=== PATIENT | male | born 1965 | race African-American/Black ===

== ENCOUNTER 2022-02-16 12:25 | Emergency (ER) | payer MEDICAID ==
[~2022-02-16] VITALS: Ht 152.4 cm; Wt 54.5 kg
[~2022-02-16 12:25] MED LIST: ATEN100T PO; OXY20CRT PO
[2022-02-16 15:10] LABS: Basophils # (auto) 0.1 10 ^3/uL (0-0.2); Basophils % (auto) 0.7 % (0.0-2.0); Eosinophils # (auto) 0 10 ^3/uL (0-0.8); Eosinophils % (auto) 0.3 % (0.0-7.0); Hematocrit 31.9 % (41.0-53.0); Hemoglobin 9.4 g/dL (13.5-17.5); Lymphocytes # (auto) 1.3 10 ^3/uL (0.4-5.4); Lymphocytes % (auto) 10.2 % (10.0-50.0); Mean Corpuscular Hemoglobin 24.9 pg (28.0-32.0); Mean Corpuscular Hgb Conc. 29.5 g/dL (32.0-36.0); Mean Corpuscular Volume 84.4 fL (80.0-100.0); Monocytes % (auto) 8.1 % (0.0-12.0); Neutrophils # (auto) 10.1 10 ^3/uL (1.6-8.6); Neutrophils % (auto) 80.7 % (37.0-80.0); Red Blood Cells 3.78 10^6/uL (4.5-5.90); White Blood Cell 12.5 10^3/uL (4.4-10.8)
[2022-02-16 15:11] LABS: Red Cell Distribution Width 20.1 % (11.8-14.3)
[2022-02-16 15:24] LABS: Calcium 8.5 mg/dL (8.5-10.1); Potassium 4.2 mmol/L (3.5-5.1)
[2022-02-16 15:28] LABS: BUN/Creatinine Ratio 40.8; Bilirubin, Total 0.3 mg/dL (0.2-1.0); Total Protein 8.1 g/dL (6.4-8.2)
[2022-02-16] MEDS ORDERED: levoFLOXacin 250 MG TAB PO ONE (16:30)
[2022-02-16] MEDS ORDERED: DOXY-286 PO (18:56)
[2022-02-16] MEDS ORDERED: ALBU108A5 IN (18:56)
[2022-02-17 09:00] VITALS: BP 135/92
== END 2022-02-17 14:35 | disposition home or self-care (01) ==
LOC: ER 12:25 → EDBD 12:25 → ER 02-17 14:31
DX: J18.9 Pneumonia, unspecified organism (principal); J45.909 Unspecified asthma, uncomplicated; I10 Essential (primary) hypertension; F17.210 Nicotine dependence, cigarettes, uncomplicated; Z86.73 Personal history of transient ischemic attack (TIA), and cerebral infarction without residual deficits; Z79.899 Other long term (current) drug therapy
CPT/HCPCS: 36415; 71045; 71250; 80053; 83605; 83880; 84484; 85025; 93005

== ENCOUNTER 2022-02-24 13:33 | Inpatient (IN) | payer MEDICAID ==
[~2022-02-24] VITALS: Ht 165.1 cm; Wt 56.9 kg
[~2022-02-24 13:33] MED LIST changes: +ALBU108A5 IN; +DOXY-286 PO
[2022-02-24] MEDS ORDERED: methylPREDNISolone SOD SUCC 125 MG/2 ML VL IV ONE (13:45)
[2022-02-24 14:18] LABS: Basophils # (auto) 0 10 ^3/uL (0-0.2); Basophils % (auto) 0.2 % (0.0-2.0); Eosinophils # (auto) 0 10 ^3/uL (0-0.8); Hemoglobin 10.1 g/dL (13.5-17.5); Neutrophils # (auto) 14.1 10 ^3/uL (1.6-8.6)
[2022-02-24 14:20] LABS: Eosinophils % (auto) 0.2 % (0.0-7.0); Hematocrit 33.9 % (41.0-53.0); Lymphocytes % (auto) 5.8 % (10.0-50.0); Mean Corpuscular Hemoglobin 25.5 pg (28.0-32.0); Mean Corpuscular Hgb Conc. 29.6 g/dL (32.0-36.0); Monocytes # (auto) 1.3 10 ^3/uL (0-1.3); Monocytes % (auto) 8.1 % (0.0-12.0); Neutrophils % (auto) 85.7 % (37.0-80.0); Red Blood Cells 3.95 10^6/uL (4.5-5.90); White Blood Cell 16.4 10^3/uL (4.4-10.8)
[2022-02-24 14:30] LABS: Red Cell Distribution Width 21.7 % (11.8-14.3)
[2022-02-24 14:31] LABS: Albumin 2.2 g/dL (3.4-5.0); Calcium 9.3 mg/dL (8.5-10.1); Magnesium 2.5 mg/dL (1.6-2.6); Potassium 3.7 mmol/L (3.5-5.1)
[2022-02-24 14:35] LABS: BUN/Creatinine Ratio 43.8; Bilirubin, Total 0.2 mg/dL (0.2-1.0); Total Protein 8.8 g/dL (6.4-8.2)
[2022-02-24 16:07] LABS: Urine Bacteria MOD /hpf (None Seen); Urine Blood Negative /uL (Negative); Urine Budding Yeast MANY /hpf (None Seen); Urine Hyaline Cast FEW /lpf (0 - 2); Urine Mucus FEW (None Seen); Urine Specific Gravity 1.034 (1.001-1.035); Urine WBC 311 /hpf (0 - 3); Urine WBC Clumps PRESENT /hpf (None Seen)
[2022-02-24] MEDS ORDERED: IPRATROPIUM BROM 0.5 MG/2.5ML INH SOL HHN ONE (16:45)
[2022-02-24] MEDS ORDERED: ALBUTEROL SULF 2.5 MG/0.5ML(0.5%) NEB SOLN HHN ONE (16:45)
[2022-02-24] MEDS ORDERED: AZITHROMYCIN 500MG/ 250ML 250 ML IV ONE (18:15)
[2022-02-24] MEDS ORDERED: cefTRIAXone 1GM/50ML D5W 50 ML IV ONE (18:15)
[2022-02-24] MEDS ORDERED: VANCOMYCIN PER PHARMACY 0 MG IV SCH (19:00)
[2022-02-24] MEDS ORDERED: DOCUSATE SOD 100 MG CAP PO PRN (19:15)
[2022-02-24] MEDS: SODIUM CHLORIDE 0.9% 1,000 ML IV SCH (20:25)
[2022-02-24] MEDS: VANCOMYCIN 1GM/250ML 250 ML IV SCH (20:27)
[2022-02-24] MEDS: PIPERACILLIN-TAZOB 3.375GM 100 ML IV SCH (22:13)
[2022-02-24] MEDS ORDERED: SODIUM CHLORIDE 0.9% 1,000 ML IV ONE (22:45)
[2022-02-25 05:30] LABS: Potassium 3.4 mmol/L (3.5-5.1)
[2022-02-25] MEDS: PIPERACILLIN-TAZOB 3.375GM 100 ML IV SCH ×3 (05:32→19:00)
[2022-02-25] MEDS: MORPHINE SULFATE INJ 2 MG/ml SYRG IV PRN (05:33)
[2022-02-25 05:37] LABS: Basophils # (auto) 0 10 ^3/uL (0-0.2); Eosinophils # (auto) 0 10 ^3/uL (0-0.8); Hematocrit 30.1 % (41.0-53.0); Lymphocytes # (auto) 0.4 10 ^3/uL (0.4-5.4); Monocytes # (auto) 0.4 10 ^3/uL (0-1.3)
[2022-02-25 05:38] LABS: Hemoglobin 8.9 g/dL (13.5-17.5); Lymphocytes % (auto) 2.7 % (10.0-50.0); Mean Corpuscular Hemoglobin 25.5 pg (28.0-32.0); Mean Corpuscular Hgb Conc. 29.5 g/dL (32.0-36.0); Mean Corpuscular Volume 86.7 fL (80.0-100.0); Monocytes % (auto) 2.8 % (0.0-12.0); Neutrophils # (auto) 14.8 10 ^3/uL (1.6-8.6); Neutrophils % (auto) 94.5 % (37.0-80.0); Red Blood Cells 3.47 10^6/uL (4.5-5.90); White Blood Cell 15.7 10^3/uL (4.4-10.8)
[2022-02-25 05:41] LABS: Albumin 2.1 g/dL (3.4-5.0); BUN/Creatinine Ratio 48.6; Bilirubin, Total 0.3 mg/dL (0.2-1.0); Calcium 8.6 mg/dL (8.5-10.1); Phosphorus 4.1 mg/dL (2.5-4.90); Total Protein 7.7 g/dL (6.4-8.2)
[2022-02-25 08:10] VITALS: BP 73/51
[2022-02-25] MEDS: ATENOLOL 25 MG TAB PO SCH (10:00)
[2022-02-25] MEDS: VANCOMYCIN 1GM/250ML 250 ML IV SCH ×2 (10:33→20:04)
[2022-02-25] MEDS: ENOXAPARIN SOD 40 MG/0.4 ML SYRINGE SC SCH (10:34)
[2022-02-25] MEDS: SODIUM CHLORIDE 0.9% 1,000 ML IV SCH (11:55)
[2022-02-25 13:00] VITALS: BP 105/73
[2022-02-25 16:55] VITALS: BP 121/84
[2022-02-25] MEDS: HYDROcodone-ACET 5/325MG TAB PO PRN (20:12)
[2022-02-25 22:00] VITALS: BP 102/63
[2022-02-26] VITALS (9 sets, daily range): BP systolic 72–119; BP diastolic 48–74
[2022-02-26] MEDS: VANCOMYCIN 1GM/250ML 250 ML IV SCH (02:00)
[2022-02-26] MEDS: MORPHINE SULFATE INJ 2 MG/ml SYRG IV PRN ×3 (03:48→19:41)
[2022-02-26] MEDS: SODIUM CHLORIDE 0.9% 1,000 ML IV SCH (05:44)
[2022-02-26] MEDS: PIPERACILLIN-TAZOB 3.375GM 100 ML IV SCH ×3 (05:44→19:37)
[2022-02-26 06:59] LABS: Basophils # (auto) 0 10 ^3/uL (0-0.2); Basophils % (auto) 0.1 % (0.0-2.0); Eosinophils # (auto) 0 10 ^3/uL (0-0.8); Lymphocytes # (auto) 0.8 10 ^3/uL (0.4-5.4); Nucleated Red Blood Cells % 0.1 %
[2022-02-26 07:04] LABS: Eosinophils % (auto) 0.2 % (0.0-7.0); Hematocrit 27.1 % (41.0-53.0); Lymphocytes % (auto) 7.1 % (10.0-50.0); Mean Corpuscular Hemoglobin 25.6 pg (28.0-32.0); Mean Corpuscular Hgb Conc. 29.5 g/dL (32.0-36.0); Mean Corpuscular Volume 86.9 fL (80.0-100.0); Monocytes % (auto) 8.6 % (0.0-12.0); Neutrophils # (auto) 9.9 10 ^3/uL (1.6-8.6); Red Blood Cells 3.12 10^6/uL (4.5-5.90); White Blood Cell 11.8 10^3/uL (4.4-10.8)
[2022-02-26 07:06] LABS: Potassium 3.2 mmol/L (3.5-5.1)
[2022-02-26 07:11] LABS: BUN/Creatinine Ratio 91.1; Calcium 8.4 mg/dL (8.5-10.1); Magnesium 2.1 mg/dL (1.6-2.6); Phosphorus 2.4 mg/dL (2.5-4.90)
[2022-02-26 07:13] LABS: Red Cell Distribution Width 21.4 % (11.8-14.3)
[2022-02-26] MEDS: ATENOLOL 25 MG TAB PO SCH (10:00)
[2022-02-26] MEDS: ENOXAPARIN SOD 40 MG/0.4 ML SYRINGE SC SCH (10:19)
[2022-02-26] MEDS: DAKINS QUARTER STR 0.125% (NaHypochlorite) 473 ML TOPICAL SOL TOP SCH (10:20)
[2022-02-26] MEDS ORDERED: guaiFENesin 200 MG/10 ML UD PO PRN (22:00)
[2022-02-26] MEDS ORDERED: guaiFENesin 200 MG/10 ML UD GT PRN (22:00)
[2022-02-26] MEDS: ALBUTEROL SULF 2.5 MG/0.5ML(0.5%) NEB SOLN NEB SCH (22:10)
[2022-02-26] MEDS: IPRATROPIUM BROM 0.5 MG/2.5ML INH SOL NEB SCH (22:10)
[2022-02-27] VITALS (44 sets, daily range): BP systolic 73–127; BP diastolic 44–81
[2022-02-27] MEDS: ALBUTEROL SULF 2.5 MG/0.5ML(0.5%) NEB SOLN NEB SCH ×6 (02:15→23:31)
[2022-02-27] MEDS: IPRATROPIUM BROM 0.5 MG/2.5ML INH SOL NEB SCH ×6 (02:15→23:31)
[2022-02-27] MEDS: D5W/SOD CHL 0.45% 1,000 ML IV SCH ×3 (03:19→21:10)
[2022-02-27] MEDS: PIPERACILLIN-TAZOB 3.375GM 100 ML IV SCH ×3 (03:20→19:47)
[2022-02-27] MEDS: ALPRAZolam 0.5 MG TAB PO PRN (06:53)
[2022-02-27] MEDS: MORPHINE SULFATE INJ 2 MG/ml SYRG IV PRN ×3 (08:12→23:41)
[2022-02-27] MEDS: ONDANSETRON HCL 4 MG/2 ML VIAL IV PRN ×2 (08:12→15:00)
[2022-02-27] MEDS: ATENOLOL 25 MG TAB PO SCH (10:00)
[2022-02-27] MEDS: ENOXAPARIN SOD 40 MG/0.4 ML SYRINGE SC SCH (10:12)
[2022-02-27] MEDS: DAKINS QUARTER STR 0.125% (NaHypochlorite) 473 ML TOPICAL SOL TOP SCH (10:38)
[2022-02-27 12:07] LABS: BUN/Creatinine Ratio 88.9; Calcium 8.2 mg/dL (8.5-10.1); Potassium 3.3 mmol/L (3.5-5.1)
[2022-02-27] MEDS: ACETYLCYSTEINE 20%(200MG/ML) SOL 4ML NEB SCH ×2 (18:57→23:31)
[2022-02-27] MEDS: HYDROcodone-ACET 5/325MG TAB PO PRN (20:20)
[2022-02-28] VITALS (99 sets, daily range): BP systolic 63–163; BP diastolic 42–91
[2022-02-28] MEDS: ALPRAZolam 0.5 MG TAB PO PRN ×2 (00:37→23:33)
[2022-02-28] MEDS: NOREPINEPHRINE 8 MG/250ML KIT 250 ML IV SCH ×2 (02:22→19:15)
[2022-02-28] MEDS: PIPERACILLIN-TAZOB 3.375GM 100 ML IV SCH ×3 (03:48→20:00)
[2022-02-28] MEDS: IPRATROPIUM BROM 0.5 MG/2.5ML INH SOL NEB SCH ×3 (07:14→18:18)
[2022-02-28] MEDS: ALBUTEROL SULF 2.5 MG/0.5ML(0.5%) NEB SOLN NEB SCH ×3 (07:14→18:18)
[2022-02-28] MEDS: ACETYLCYSTEINE 20%(200MG/ML) SOL 4ML NEB SCH ×3 (07:14→18:18)
[2022-02-28] MEDS: ATENOLOL 25 MG TAB PO SCH (10:00)
[2022-02-28] MEDS: D5W/SOD CHL 0.45% 1,000 ML IV SCH ×2 (10:30→23:50)
[2022-02-28] MEDS ORDERED: CLINIMIX PER PHARMACY 0 ML IV SCH (10:45)
[2022-02-28] MEDS: ENOXAPARIN SOD 40 MG/0.4 ML SYRINGE SC SCH (11:01)
[2022-02-28] MEDS: HYDROcodone-ACET 5/325MG TAB PO PRN ×2 (11:33→22:25)
[2022-02-28 11:36] LABS: Albumin 1.7 g/dL (3.4-5.0); Calcium 8.6 mg/dL (8.5-10.1); Magnesium 2.3 mg/dL (1.6-2.6)
[2022-02-28 11:39] LABS: BUN/Creatinine Ratio 50.9; Bilirubin, Total 0.3 mg/dL (0.2-1.0)
[2022-02-28] MEDS ORDERED: DEXTROSE (50%) 50ML SYRG IV SCH (12:00)
[2022-02-28] MEDS: InsuLIN REG 1unit/0.01ml Soln (100units/ml) SC SCH ×2 (12:00→18:00)
[2022-02-28 12:08] LABS: Potassium 2.9 mmol/L (3.5-5.1)
[2022-02-28] MEDS ORDERED: POTASSIUM CHLORIDE 60 MEQ, LIDOCAINE 1% (LOCAL ANESTH.) 6 ML in SODIUM CHL 0.9% 500 ML IV ONE (12:15)
[2022-02-28 14:19] LABS: Hematocrit 28.4 % (41.0-53.0); Hemoglobin 8.5 g/dL (13.5-17.5); Mean Corpuscular Hemoglobin 25.9 pg (28.0-32.0); Mean Corpuscular Volume 86.4 fL (80.0-100.0); Red Blood Cells 3.28 10^6/uL (4.5-5.90)
[2022-02-28 14:22] LABS: Red Cell Distribution Width 21.9 % (11.8-14.3)
[2022-02-28 14:23] LABS: White Blood Cell 33.8 10^3/uL (4.4-10.8)
[2022-02-28 14:25] LABS: Band Neutrophils % (manual) 0; Basophils % (manual) 0 (0.0-2.0); Blast Cells 0; Eosinophils % (manual) 0 (0-7); Metamyelocytes % 0; Myelocytes % 0; Promyelocytes % 0; Reactive Lymphocytes 0
[2022-02-28 14:42] LABS: Lymphocytes % (manual) 5 (10.0-50.0)
[2022-02-28 14:43] LABS: Monocytes % (manual) 1 (0-12)
[2022-02-28] MEDS: ACCU-CHEK COMFORT CURVE STRIP VI SCH ×2 (15:05→20:00)
[2022-02-28] MEDS: DAKINS QUARTER STR 0.125% (NaHypochlorite) 473 ML TOPICAL SOL TOP SCH (15:06)
[2022-02-28] MEDS: IPRATROPIUM BROM 0.5 MG/2.5ML INH SOL NEB PRN (15:56)
[2022-02-28] MEDS: ALBUTEROL SULF 2.5 MG/0.5ML(0.5%) NEB SOLN NEB PRN (15:56)
[2022-02-28] MEDS: CLINIMIX PER PHARMACY IV NR (23:44)
[2022-03-01] VITALS (94 sets, daily range): BP systolic 67–157; BP diastolic 26–101
[2022-03-01] MEDS: ACCU-CHEK COMFORT CURVE STRIP VI SCH ×5 (00:26→23:43)
[2022-03-01] MEDS: ALBUTEROL SULF 2.5 MG/0.5ML(0.5%) NEB SOLN NEB SCH ×4 (00:55→18:28)
[2022-03-01] MEDS: ACETYLCYSTEINE 20%(200MG/ML) SOL 4ML NEB SCH ×4 (00:55→18:28)
[2022-03-01] MEDS: IPRATROPIUM BROM 0.5 MG/2.5ML INH SOL NEB SCH ×4 (00:55→18:28)
[2022-03-01] MEDS: MORPHINE SULFATE INJ 2 MG/ml SYRG IV PRN ×4 (01:41→18:20)
[2022-03-01] MEDS: NOREPINEPHRINE 8 MG/250ML KIT 250 ML IV SCH (01:57)
[2022-03-01 04:59] LABS: Hematocrit 29.1 % (41.0-53.0); Hemoglobin 8.6 g/dL (13.5-17.5); Mean Corpuscular Hemoglobin 25.9 pg (28.0-32.0); Mean Corpuscular Hgb Conc. 29.5 g/dL (32.0-36.0); Mean Corpuscular Volume 87.7 fL (80.0-100.0); Red Blood Cells 3.32 10^6/uL (4.5-5.90); White Blood Cell 28.3 10^3/uL (4.4-10.8)
[2022-03-01 05:01] LABS: Red Cell Distribution Width 22.1 % (11.8-14.3)
[2022-03-01 05:02] LABS: Band Neutrophils % (manual) 0; Basophils % (manual) 0 (0.0-2.0); Blast Cells 0; Eosinophils % (manual) 0 (0-7); Metamyelocytes % 0; Myelocytes % 0; Promyelocytes % 0; Reactive Lymphocytes 0
[2022-03-01] MEDS: PIPERACILLIN-TAZOB 3.375GM 100 ML IV SCH ×3 (05:04→18:11)
[2022-03-01 05:05] LABS: Albumin 1.6 g/dL (3.4-5.0); Calcium 8.4 mg/dL (8.5-10.1); Magnesium 2.2 mg/dL (1.6-2.6); Potassium 3.5 mmol/L (3.5-5.1)
[2022-03-01 05:09] LABS: BUN/Creatinine Ratio 53.7; Bilirubin, Total 0.3 mg/dL (0.2-1.0); Total Protein 6.6 g/dL (6.4-8.2)
[2022-03-01] MEDS: InsuLIN REG 1unit/0.01ml Soln (100units/ml) SC SCH ×5 (06:00→23:45)
[2022-03-01 06:33] LABS: Lymphocytes % (manual) 6 (10.0-50.0); Monocytes % (manual) 2 (0-12)
[2022-03-01] MEDS: ATENOLOL 25 MG TAB PO SCH (09:23)
[2022-03-01] MEDS: DAKINS QUARTER STR 0.125% (NaHypochlorite) 473 ML TOPICAL SOL TOP SCH (09:26)
[2022-03-01] MEDS: ENOXAPARIN SOD 40 MG/0.4 ML SYRINGE SC SCH (09:26)
[2022-03-01 10:41] LABS: INR 1.15 (0.9-1.15); Partial Thromboplastin Time 42.6 sec (24.6-33.4)
[2022-03-01] MEDS: D5W/SOD CHL 0.45% 1,000 ML IV SCH (13:10)
[2022-03-01] MEDS: ALPRAZolam 0.5 MG TAB PO PRN (19:27)
[2022-03-01] MEDS: CLINIMIX PER PHARMACY IV NR ×2 (19:49→21:13)
[2022-03-01] MEDS ORDERED: VANCOMYCIN PER PHARMACY 1,000 MG IV SCH (21:00)
[2022-03-01] MEDS: VANCOMYCIN 750mg/250ml 250 ML IV SCH (22:07)
[2022-03-01] MEDS ORDERED: LIDOCAINE 1% (LOCAL ANESTH.) PF 5ml SDV ID ONE (23:30)
[2022-03-02] VITALS (94 sets, daily range): BP systolic 79–165; BP diastolic 32–103
[2022-03-02] MEDS: ACETYLCYSTEINE 20%(200MG/ML) SOL 4ML NEB SCH ×4 (00:08→19:01)
[2022-03-02] MEDS: IPRATROPIUM BROM 0.5 MG/2.5ML INH SOL NEB SCH ×4 (00:08→19:00)
[2022-03-02] MEDS: ALBUTEROL SULF 2.5 MG/0.5ML(0.5%) NEB SOLN NEB SCH ×4 (00:08→19:00)
[2022-03-02] MEDS: D5W/SOD CHL 0.45% 1,000 ML IV SCH ×2 (02:30→16:09)
[2022-03-02] MEDS: MORPHINE SULFATE INJ 2 MG/ml SYRG IV PRN ×4 (04:06→22:22)
[2022-03-02] MEDS: PIPERACILLIN-TAZOB 3.375GM 100 ML IV SCH ×3 (04:07→19:45)
[2022-03-02 04:43] LABS: Basophils # (auto) 0 10 ^3/uL (0-0.2); Basophils % (auto) 0.1 % (0.0-2.0); Eosinophils # (auto) 0.1 10 ^3/uL (0-0.8); Eosinophils % (auto) 0.3 % (0.0-7.0)
[2022-03-02 04:45] LABS: Hematocrit 25.3 % (41.0-53.0); Hemoglobin 7.4 g/dL (13.5-17.5); Lymphocytes # (auto) 0.9 10 ^3/uL (0.4-5.4); Lymphocytes % (auto) 4.8 % (10.0-50.0); Mean Corpuscular Hgb Conc. 29.2 g/dL (32.0-36.0); Mean Corpuscular Volume 89.1 fL (80.0-100.0); Monocytes # (auto) 0.8 10 ^3/uL (0-1.3); Monocytes % (auto) 4.4 % (0.0-12.0); Neutrophils # (auto) 17.1 10 ^3/uL (1.6-8.6); Neutrophils % (auto) 90.4 % (37.0-80.0); Red Blood Cells 2.84 10^6/uL (4.5-5.90); White Blood Cell 18.9 10^3/uL (4.4-10.8)
[2022-03-02 04:47] LABS: Red Cell Distribution Width 21.5 % (11.8-14.3)
[2022-03-02 05:10] LABS: Albumin 1.6 g/dL (3.4-5.0); BUN/Creatinine Ratio 63.3; Bilirubin, Total 0.7 mg/dL (0.2-1.0); Calcium 7.9 mg/dL (8.5-10.1); Magnesium 1.8 mg/dL (1.6-2.6); Phosphorus 2.1 mg/dL (2.5-4.90); Total Protein 5.5 g/dL (6.4-8.2)
[2022-03-02 05:31] LABS: Potassium 2.9 mmol/L (3.5-5.1)
[2022-03-02] MEDS: ACCU-CHEK COMFORT CURVE STRIP VI SCH ×3 (05:45→18:44)
[2022-03-02] MEDS: InsuLIN REG 1unit/0.01ml Soln (100units/ml) SC SCH ×3 (05:45→18:00)
[2022-03-02] MEDS: POTASSIUM CHL 20MEQ/100ML 100 ML IV SCH ×2 (06:07→09:34)
[2022-03-02] MEDS: ATENOLOL 25 MG TAB PO SCH (07:45)
[2022-03-02] MEDS ORDERED: POTASSIUM PHOSPHATE 26.4 MEQ in SODIUM CHL 0.9% 100 ML IV ONE (09:15)
[2022-03-02] MEDS: ENOXAPARIN SOD 40 MG/0.4 ML SYRINGE SC SCH (09:34)
[2022-03-02] MEDS: DAKINS QUARTER STR 0.125% (NaHypochlorite) 473 ML TOPICAL SOL TOP SCH (09:34)
[2022-03-02] MEDS: VANCOMYCIN 750mg/250ml 250 ML IV SCH ×2 (09:34→22:23)
[2022-03-02] MEDS: SODIUM CHLOR 0.9% PF (SALINE LOCK) 10ML VIAL/SYR IV SCH ×2 (09:34→22:23)
[2022-03-02 13:11] LABS: Alkaline Phosphatase 98 U/L (45-117); Anion Gap 6 (5-15); BUN/Creatinine Ratio 43.6; Blood Urea Nitrogen 17 mg/dL (7-18); Carbon Dioxide 25 mmol/L (21-32); Chloride 110 mmol/L (98-107); GFR African American 295 mL/min; GFR Non-African American 244 mL/min; Glucose 304 mg/dL (74-106); Potassium 3.7 mmol/L (3.5-5.1); Sodium 141 mmol/L (136-145)
[2022-03-02 13:12] LABS: Alanine Aminotransferase 7 U/L (16-61); Albumin 1.4 g/dL (3.4-5.0); Aspartate Aminotransferase 10 U/L (15-37); Bilirubin, Total 0.3 mg/dL (0.2-1.0); Calcium 7.6 mg/dL (8.5-10.1); Magnesium 1.6 mg/dL (1.6-2.6); Phosphorus 1.8 mg/dL (2.5-4.90); Total Protein 5.2 g/dL (6.4-8.2); Triglycerides 69 mg/dL (< 150)
[2022-03-02] MEDS: ALPRAZolam 0.5 MG TAB PO PRN (15:17)
[2022-03-02] MEDS: IPRATROPIUM BROM 0.5 MG/2.5ML INH SOL NEB PRN (15:30)
[2022-03-02] MEDS: ALBUTEROL SULF 2.5 MG/0.5ML(0.5%) NEB SOLN NEB PRN (15:31)
[2022-03-02] MEDS ORDERED: FUROSEMIDE 20 MG/2 ML VIAL IV ONE (19:00)
[2022-03-02] MEDS ORDERED: GLYCOPYRROLATE 0.2 MG/ML 1ML VIAL IV ONE (19:00)
[2022-03-02] MEDS: CLINIMIX PER PHARMACY IV NR (19:49)
[2022-03-02] MEDS ORDERED: SUCCINYLCHOLINE CHLORIDE 20 MG/ML 10ML VIAL IV ONE (20:25)
[2022-03-02] MEDS ORDERED: ETOMIDATE (2MG/ML) 20ML VIAL IV ONE (20:25)
[2022-03-02] MEDS ORDERED: MIDAZOLAM DRIP 50 mg/50mL 50 ML IV ONE (21:35)
[2022-03-02] MEDS: AMINO ACID INFUSION IN D10W 1,000 ML IV NR (22:23)
[2022-03-03] VITALS (109 sets, daily range): BP systolic 60–157; BP diastolic 34–123
[2022-03-03] MEDS: ALBUTEROL SULF 2.5 MG/0.5ML(0.5%) NEB SOLN NEB SCH ×3 (00:07→18:04)
[2022-03-03] MEDS: IPRATROPIUM BROM 0.5 MG/2.5ML INH SOL NEB SCH ×3 (00:07→18:04)
[2022-03-03] MEDS: ACETYLCYSTEINE 20%(200MG/ML) SOL 4ML NEB SCH ×3 (00:08→18:04)
[2022-03-03] MEDS: ACCU-CHEK COMFORT CURVE STRIP VI SCH ×4 (00:29→17:38)
[2022-03-03] MEDS: MIDAZOLAM DRIP 50 mg/50mL 50 ML IV SCH ×5 (00:29→23:00)
[2022-03-03] MEDS: InsuLIN REG 1unit/0.01ml Soln (100units/ml) SC SCH ×4 (00:30→17:38)
[2022-03-03 02:15] LABS: Mean Corpuscular Volume 87.8 fL (80.0-100.0)
[2022-03-03 02:17] LABS: Hemoglobin 7.4 g/dL (13.5-17.5); Mean Corpuscular Hemoglobin 25.9 pg (28.0-32.0); Mean Corpuscular Hgb Conc. 29.5 g/dL (32.0-36.0); Red Blood Cells 2.85 10^6/uL (4.5-5.90); White Blood Cell 25.2 10^3/uL (4.4-10.8)
[2022-03-03 02:37] LABS: Albumin 1.5 g/dL (3.4-5.0); Calcium 7.6 mg/dL (8.5-10.1); Potassium 3.8 mmol/L (3.5-5.1)
[2022-03-03 02:38] LABS: Bilirubin, Total 0.3 mg/dL (0.2-1.0); Total Protein 5.5 g/dL (6.4-8.2)
[2022-03-03 02:40] LABS: Red Cell Distribution Width 20.8 % (11.8-14.3)
[2022-03-03 02:41] LABS: Basophils % (manual) 0 (0.0-2.0); Blast Cells 0; Eosinophils % (manual) 0 (0-7); Metamyelocytes % 0; Promyelocytes % 0; Reactive Lymphocytes 0
[2022-03-03] MEDS: PIPERACILLIN-TAZOB 3.375GM 100 ML IV SCH ×3 (03:00→19:44)
[2022-03-03 03:52] LABS: Band Neutrophils % (manual) 5; Lymphocytes % (manual) 2 (10.0-50.0); Monocytes % (manual) 6 (0-12); Myelocytes % 1
[2022-03-03] MEDS ORDERED: SODIUM CHLORIDE 0.9% 250 ML IV ONE (06:00)
[2022-03-03] MEDS: NOREPINEPHRINE 8 MG/250ML KIT 250 ML IV SCH ×2 (06:43→17:20)
[2022-03-03] MEDS: D5W/SOD CHL 0.45% 1,000 ML IV SCH ×2 (06:43→18:30)
[2022-03-03 09:17] LABS: Basophils # (auto) 0 10 ^3/uL (0-0.2); Basophils % (auto) 0.2 % (0.0-2.0); Mean Corpuscular Hgb Conc. 29.3 g/dL (32.0-36.0); Monocytes # (auto) 0.8 10 ^3/uL (0-1.3); Neutrophils # (auto) 13.4 10 ^3/uL (1.6-8.6)
[2022-03-03 09:19] LABS: Eosinophils # (auto) 0.1 10 ^3/uL (0-0.8); Eosinophils % (auto) 0.4 % (0.0-7.0); Hematocrit 22.6 % (41.0-53.0); Lymphocytes % (auto) 6.6 % (10.0-50.0); Mean Corpuscular Hemoglobin 25.9 pg (28.0-32.0); Mean Corpuscular Volume 88.5 fL (80.0-100.0); Monocytes % (auto) 5.1 % (0.0-12.0); Neutrophils % (auto) 87.7 % (37.0-80.0); Red Blood Cells 2.55 10^6/uL (4.5-5.90); Red Cell Distribution Width 21.1 % (11.8-14.3); White Blood Cell 15.3 10^3/uL (4.4-10.8)
[2022-03-03 09:22] LABS: Hemoglobin 6.6 g/dL (13.5-17.5)
[2022-03-03 09:35] LABS: INR 1.12 (0.9-1.15)
[2022-03-03 09:40] LABS: Potassium 3.5 mmol/L (3.5-5.1)
[2022-03-03 09:50] LABS: Albumin 1.4 g/dL (3.4-5.0); BUN/Creatinine Ratio 39.4; Bilirubin, Total 0.2 mg/dL (0.2-1.0); Calcium 7.7 mg/dL (8.5-10.1); Total Protein 5.2 g/dL (6.4-8.2)
[2022-03-03] MEDS: DAKINS QUARTER STR 0.125% (NaHypochlorite) 473 ML TOPICAL SOL TOP SCH (10:00)
[2022-03-03] MEDS: ENOXAPARIN SOD 40 MG/0.4 ML SYRINGE SC SCH (10:00)
[2022-03-03] MEDS: VANCOMYCIN 750mg/250ml 250 ML IV SCH (10:00)
[2022-03-03] MEDS: ATENOLOL 25 MG TAB PO SCH (10:00)
[2022-03-03] MEDS: SODIUM CHLOR 0.9% PF (SALINE LOCK) 10ML VIAL/SYR IV SCH ×2 (10:10→22:01)
[2022-03-03] MEDS ORDERED: FUROSEMIDE 40 MG/4 ML VIAL IV ONE ×2 (10:15→11:05)
[2022-03-03 10:46] LABS: Magnesium 1.5 mg/dL (1.6-2.6); Phosphorus 3.2 mg/dL (2.5-4.90)
[2022-03-03] MEDS: MAGNESIUM SULFATE 1GM/100ML 100 ML IV SCH ×2 (12:26→15:08)
[2022-03-03 17:29] LABS: Basophils # (auto) 0 10 ^3/uL (0-0.2); Eosinophils # (auto) 0.1 10 ^3/uL (0-0.8)
[2022-03-03 17:36] LABS: Basophils % (auto) 0.1 % (0.0-2.0); Mean Corpuscular Hgb Conc. 30.6 g/dL (32.0-36.0); Monocytes # (auto) 0.9 10 ^3/uL (0-1.3); Monocytes % (auto) 5.5 % (0.0-12.0)
[2022-03-03 17:38] LABS: Eosinophils % (auto) 0.5 % (0.0-7.0); Hematocrit 27.1 % (41.0-53.0); Hemoglobin 8.3 g/dL (13.5-17.5); Lymphocytes # (auto) 0.7 10 ^3/uL (0.4-5.4); Lymphocytes % (auto) 4.3 % (10.0-50.0); Mean Corpuscular Hemoglobin 26.6 pg (28.0-32.0); Mean Corpuscular Volume 86.9 fL (80.0-100.0); Neutrophils # (auto) 14.7 10 ^3/uL (1.6-8.6); Neutrophils % (auto) 89.6 % (37.0-80.0); Red Blood Cells 3.11 10^6/uL (4.5-5.90); Red Cell Distribution Width 19.3 % (11.8-14.3); White Blood Cell 16.3 10^3/uL (4.4-10.8)
[2022-03-03] MEDS: AMINO ACID INFUSION IN D10W 1,000 ML IV NR (19:55)
[2022-03-03] MEDS ORDERED: VANCOMYCIN 1GM/250ML 250 ML IV ONE (22:00)
[2022-03-03] MEDS ORDERED: IOHEXOL 350 MG/ML 100ML IJ ONE (22:53)
[2022-03-04] VITALS (97 sets, daily range): BP systolic 81–232; BP diastolic 56–176
[2022-03-04] MEDS: MORPHINE SULFATE INJ 2 MG/ml SYRG IV PRN (00:05)
[2022-03-04] MEDS: ACETYLCYSTEINE 20%(200MG/ML) SOL 4ML NEB SCH ×4 (00:07→18:08)
[2022-03-04] MEDS: IPRATROPIUM BROM 0.5 MG/2.5ML INH SOL NEB SCH ×4 (00:07→18:08)
[2022-03-04] MEDS: ALBUTEROL SULF 2.5 MG/0.5ML(0.5%) NEB SOLN NEB SCH ×4 (00:07→18:08)
[2022-03-04] MEDS: ACCU-CHEK COMFORT CURVE STRIP VI SCH ×4 (01:16→18:14)
[2022-03-04] MEDS: InsuLIN REG 1unit/0.01ml Soln (100units/ml) SC SCH ×4 (01:17→18:00)
[2022-03-04] MEDS: PIPERACILLIN-TAZOB 3.375GM 100 ML IV SCH ×3 (03:14→18:39)
[2022-03-04] MEDS: MIDAZOLAM DRIP 50 mg/50mL 50 ML IV SCH ×6 (03:15→21:24)
[2022-03-04 04:41] LABS: Chloride 104 mmol/L (98-107); Potassium 3.3 mmol/L (3.5-5.1); Sodium 133 mmol/L (136-145)
[2022-03-04 04:47] LABS: Alanine Aminotransferase < 6 U/L (16-61); Albumin 1.4 g/dL (3.4-5.0); Alkaline Phosphatase 100 U/L (45-117); Anion Gap 9 (5-15); Aspartate Aminotransferase 13 U/L (15-37); BUN/Creatinine Ratio 27.5; Bilirubin, Total 0.6 mg/dL (0.2-1.0); Blood Urea Nitrogen 30 mg/dL (7-18); Calcium 7.3 mg/dL (8.5-10.1); Carbon Dioxide 20 mmol/L (21-32); GFR African American 90 mL/min; GFR Non-African American 74 mL/min; Glucose 184 mg/dL (74-106); Phosphorus 2.6 mg/dL (2.5-4.90); Total Protein 5.4 g/dL (6.4-8.2)
[2022-03-04 04:59] LABS: Urine Bacteria FEW /hpf (None Seen); Urine Blood 1+ /uL (Negative); Urine Budding Yeast MANY /hpf (None Seen); Urine Mucus FEW (None Seen); Urine Specific Gravity 1.016 (1.001-1.035); Urine WBC 27 /hpf (0 - 3); Urine WBC Clumps PRESENT /hpf (None Seen)
[2022-03-04] MEDS: NOREPINEPHRINE 8 MG/250ML KIT 250 ML IV SCH (05:39)
[2022-03-04 05:49] LABS: Basophils # (auto) 0 10 ^3/uL (0-0.2); Basophils % (auto) 0.1 % (0.0-2.0); Eosinophils # (auto) 0.1 10 ^3/uL (0-0.8); Hematocrit 25.9 % (41.0-53.0); Lymphocytes # (auto) 1.1 10 ^3/uL (0.4-5.4); Monocytes # (auto) 0.8 10 ^3/uL (0-1.3)
[2022-03-04 05:51] LABS: Eosinophils % (auto) 0.5 % (0.0-7.0); Hemoglobin 7.9 g/dL (13.5-17.5); Lymphocytes % (auto) 8.5 % (10.0-50.0); Mean Corpuscular Hemoglobin 26.6 pg (28.0-32.0); Mean Corpuscular Hgb Conc. 30.6 g/dL (32.0-36.0); Neutrophils # (auto) 11.4 10 ^3/uL (1.6-8.6); Neutrophils % (auto) 84.9 % (37.0-80.0); Red Blood Cells 2.97 10^6/uL (4.5-5.90); Red Cell Distribution Width 19.5 % (11.8-14.3); White Blood Cell 13.4 10^3/uL (4.4-10.8)
[2022-03-04] MEDS: D5W/SOD CHL 0.45% 1,000 ML IV SCH ×2 (06:49→20:15)
[2022-03-04] MEDS: POTASSIUM CHL 20MEQ/100ML 100 ML IV SCH ×2 (07:37→09:40)
[2022-03-04] MEDS: DAKINS QUARTER STR 0.125% (NaHypochlorite) 473 ML TOPICAL SOL TOP SCH (10:00)
[2022-03-04] MEDS: ATENOLOL 25 MG TAB PO SCH (10:00)
[2022-03-04] MEDS: ENOXAPARIN SOD 40 MG/0.4 ML SYRINGE SC SCH (10:12)
[2022-03-04] MEDS: SODIUM CHLOR 0.9% PF (SALINE LOCK) 10ML VIAL/SYR IV SCH ×2 (10:13→20:15)
[2022-03-04] MEDS ORDERED: LIDOCAINE 2%HCL (LOCAL ANESTH.) INJ 20ML MDV ONE (12:40)
[2022-03-04] MEDS ORDERED: NALOXONE HCL 0.4 MG/ML VIAL ONE (12:40)
[2022-03-04] MEDS ORDERED: FLUMAZENIL 0.1 MG/ML INJ 10ML MDV IV ONE (12:40)
[2022-03-04] MEDS ORDERED: EPINEPHrine HCL 1 MG/1 ML AMP ONE (12:41)
[2022-03-04] MEDS ORDERED: fentaNYL CITRATE 100 MCG/2 ML VL ONE (12:41)
[2022-03-04] MEDS ORDERED: MIDAZOLAM HCL 5 MG/ML-1ML VIAL ONE (12:41)
[2022-03-04] MEDS ORDERED: GLYCOPYRROLATE 0.2 MG/ML 1ML VIAL ONE (12:41)
[2022-03-04] MEDS ORDERED: LIDOCAINE 2% JELLY 11ml (GLYDO) ONE (12:46)
[2022-03-04] MEDS ORDERED: POTASSIUM PHOSPHATE 26.4 MEQ in SODIUM CHL 0.9% 100 ML IV ONE (14:00)
[2022-03-04] MEDS ORDERED: hydrALAZINE HCL 20 MG/ML VL IV PRN (14:30)
[2022-03-04] MEDS: AMINO ACID INFUSION IN D10W 1,000 ML IV NR (20:15)
[2022-03-04] MEDS: MUPIROCIN 2% OINT 15gm or 22gm TOP SCH (20:15)
[2022-03-04] MEDS ORDERED: VANCOMYCIN 750mg/250ml 250 ML IV SCH (22:00)
[2022-03-05] VITALS (104 sets, daily range): BP systolic 75–143; BP diastolic 51–98
[2022-03-05] MEDS: InsuLIN REG 1unit/0.01ml Soln (100units/ml) SC SCH ×4 (00:13→17:40)
[2022-03-05] MEDS: ACCU-CHEK COMFORT CURVE STRIP VI SCH ×4 (00:13→17:29)
[2022-03-05] MEDS: IPRATROPIUM BROM 0.5 MG/2.5ML INH SOL NEB SCH ×4 (00:15→18:27)
[2022-03-05] MEDS: ALBUTEROL SULF 2.5 MG/0.5ML(0.5%) NEB SOLN NEB SCH ×4 (00:15→18:27)
[2022-03-05] MEDS: ACETYLCYSTEINE 20%(200MG/ML) SOL 4ML NEB SCH ×4 (00:15→18:29)
[2022-03-05] MEDS: MIDAZOLAM DRIP 50 mg/50mL 50 ML IV SCH ×3 (01:21→09:06)
[2022-03-05] MEDS: PIPERACILLIN-TAZOB 3.375GM 100 ML IV SCH ×2 (02:35→12:30)
[2022-03-05] MEDS ORDERED: fentaNYL Drip 2500mCg/250mlNS 250 ML IV ONE (03:13)
[2022-03-05] MEDS: fentaNYL Drip 2500mCg/250mlNS 250 ML IV SCH (03:14)
[2022-03-05 04:06] LABS: Basophils # (auto) 0 10 ^3/uL (0-0.2); Eosinophils # (auto) 0.2 10 ^3/uL (0-0.8); Eosinophils % (auto) 1.4 % (0.0-7.0); Hemoglobin 7.6 g/dL (13.5-17.5); Lymphocytes # (auto) 0.6 10 ^3/uL (0.4-5.4); Monocytes # (auto) 0.7 10 ^3/uL (0-1.3); Neutrophils # (auto) 10.8 10 ^3/uL (1.6-8.6)
[2022-03-05 04:12] LABS: Basophils % (auto) 0.1 % (0.0-2.0); Hematocrit 24.6 % (41.0-53.0); Lymphocytes % (auto) 4.8 % (10.0-50.0); Mean Corpuscular Hemoglobin 26.7 pg (28.0-32.0); Mean Corpuscular Hgb Conc. 30.9 g/dL (32.0-36.0); Mean Corpuscular Volume 86.2 fL (80.0-100.0); Monocytes % (auto) 5.4 % (0.0-12.0); Neutrophils % (auto) 88.3 % (37.0-80.0); Red Blood Cells 2.85 10^6/uL (4.5-5.90); Red Cell Distribution Width 19.4 % (11.8-14.3); White Blood Cell 12.2 10^3/uL (4.4-10.8)
[2022-03-05 04:26] LABS: Potassium 4.1 mmol/L (3.5-5.1)
[2022-03-05 04:32] LABS: Albumin 1.3 g/dL (3.4-5.0); BUN/Creatinine Ratio 27.1; Bilirubin, Total 0.3 mg/dL (0.2-1.0); Calcium 7.3 mg/dL (8.5-10.1); Magnesium 1.9 mg/dL (1.6-2.6); Phosphorus 4.8 mg/dL (2.5-4.90); Total Protein 5.2 g/dL (6.4-8.2)
[2022-03-05] MEDS: MUPIROCIN 2% OINT 15gm or 22gm TOP SCH ×2 (09:06→20:43)
[2022-03-05] MEDS: ENOXAPARIN SOD 40 MG/0.4 ML SYRINGE SC SCH (09:07)
[2022-03-05] MEDS: ATENOLOL 25 MG TAB PO SCH (09:14)
[2022-03-05] MEDS: SODIUM CHLOR 0.9% PF (SALINE LOCK) 10ML VIAL/SYR IV SCH ×2 (09:14→20:42)
[2022-03-05] MEDS: D5W/SOD CHL 0.45% 1,000 ML IV SCH ×2 (09:15→23:50)
[2022-03-05] MEDS: VASOPRESSIN 50 UNITS in D5W 5% 247.5 ML IV SCH (09:30)
[2022-03-05] MEDS: DAKINS QUARTER STR 0.125% (NaHypochlorite) 473 ML TOPICAL SOL TOP SCH (15:46)
[2022-03-05] MEDS: SODIUM FERR GLUC 62.5MG/5ML 125 MG in SODIUM CHL 0.9% 100 ML IV SCH (15:46)
[2022-03-05] MEDS ORDERED: PANTOPRAZOLE 40 MG/10 ML VIAL INJ IV ONE (16:45)
[2022-03-05] MEDS: MIDODRINE HCL 10 MG TAB PO SCH (17:29)
[2022-03-05] MEDS: CeftoloZANE-TAZOB 3 GM in D5W 5% 100 ML IV SCH (18:01)
[2022-03-05] MEDS: NOREPINEPHRINE 8 MG/250ML KIT 250 ML IV SCH (19:15)
[2022-03-05] MEDS: AMINO ACID INFUSION IN D10W 1,000 ML IV NR (20:42)
[2022-03-06] VITALS (87 sets, daily range): BP systolic 77–148; BP diastolic 53–111
[2022-03-06] MEDS: ACCU-CHEK COMFORT CURVE STRIP VI SCH ×4 (00:02→18:02)
[2022-03-06] MEDS: ALBUTEROL SULF 2.5 MG/0.5ML(0.5%) NEB SOLN NEB SCH ×5 (00:23→18:11)
[2022-03-06] MEDS: IPRATROPIUM BROM 0.5 MG/2.5ML INH SOL NEB SCH ×5 (00:24→18:11)
[2022-03-06] MEDS: ACETYLCYSTEINE 20%(200MG/ML) SOL 4ML NEB SCH ×4 (00:24→18:10)
[2022-03-06] MEDS: CeftoloZANE-TAZOB 3 GM in D5W 5% 100 ML IV SCH ×3 (02:12→18:02)
[2022-03-06] MEDS: fentaNYL Drip 2500mCg/250mlNS 250 ML IV SCH (03:00)
[2022-03-06] MEDS: D5W/SOD CHL 0.45% 1,000 ML IV SCH (03:10)
[2022-03-06 04:43] LABS: Basophils # (auto) 0 10 ^3/uL (0-0.2); Eosinophils # (auto) 0.1 10 ^3/uL (0-0.8); Lymphocytes # (auto) 0.9 10 ^3/uL (0.4-5.4); Red Blood Cells 2.52 10^6/uL (4.5-5.90); Red Cell Distribution Width 19.5 % (11.8-14.3); White Blood Cell 7.6 10^3/uL (4.4-10.8)
[2022-03-06] MEDS: ALPRAZolam 0.5 MG TAB PO PRN ×2 (04:45→20:35)
[2022-03-06 04:48] LABS: Basophils % (auto) 0.3 % (0.0-2.0); Eosinophils % (auto) 1.6 % (0.0-7.0); Hematocrit 21.6 % (41.0-53.0); Lymphocytes % (auto) 11.4 % (10.0-50.0); Mean Corpuscular Hemoglobin 27.2 pg (28.0-32.0); Mean Corpuscular Hgb Conc. 31.8 g/dL (32.0-36.0); Mean Corpuscular Volume 85.8 fL (80.0-100.0); Monocytes # (auto) 0.7 10 ^3/uL (0-1.3); Monocytes % (auto) 8.8 % (0.0-12.0); Neutrophils % (auto) 77.9 % (37.0-80.0)
[2022-03-06 04:50] LABS: Hemoglobin 6.9 g/dL (13.5-17.5)
[2022-03-06 05:03] LABS: Albumin 1.1 g/dL (3.4-5.0); BUN/Creatinine Ratio 27.2; Calcium 7.7 mg/dL (8.5-10.1); Magnesium 1.6 mg/dL (1.6-2.6); Potassium 3.4 mmol/L (3.5-5.1)
[2022-03-06 05:05] LABS: Bilirubin, Total 0.2 mg/dL (0.2-1.0); Phosphorus 2.9 mg/dL (2.5-4.90); Total Protein 5.7 g/dL (6.4-8.2)
[2022-03-06] MEDS: InsuLIN REG 1unit/0.01ml Soln (100units/ml) SC SCH ×4 (05:13→18:00)
[2022-03-06] MEDS ORDERED: POTASSIUM CHL 20MEQ/100ML 100 ML IV ONE (05:30)
[2022-03-06] MEDS: MAGNESIUM SULFATE 1GM/100ML 100 ML IV SCH ×4 (06:01→14:17)
[2022-03-06] MEDS: MIDODRINE HCL 10 MG TAB PO SCH ×3 (06:03→18:03)
[2022-03-06] MEDS: VASOPRESSIN 50 UNITS in D5W 5% 247.5 ML IV SCH (09:30)
[2022-03-06] MEDS: ATENOLOL 25 MG TAB PO SCH (10:00)
[2022-03-06] MEDS ORDERED: PANTOPRAZOLE 40 MG/10 ML VIAL INJ IV SCH (10:00)
[2022-03-06] MEDS: ENOXAPARIN SOD 40 MG/0.4 ML SYRINGE SC SCH (10:00)
[2022-03-06] MEDS: MUPIROCIN 2% OINT 15gm or 22gm TOP SCH ×2 (10:14→21:13)
[2022-03-06] MEDS: SODIUM CHLOR 0.9% PF (SALINE LOCK) 10ML VIAL/SYR IV SCH ×2 (10:15→21:13)
[2022-03-06] MEDS: DAKINS QUARTER STR 0.125% (NaHypochlorite) 473 ML TOPICAL SOL TOP SCH (10:16)
[2022-03-06] MEDS ORDERED: POTASSIUM PHOSPHATE 22 MEQ in SODIUM CHL 0.9% 100 ML IV ONE (11:00)
[2022-03-06] MEDS ORDERED: FUROSEMIDE 20 MG/2 ML VIAL IV ONE (13:45)
[2022-03-06] MEDS: SODIUM FERR GLUC 62.5MG/5ML 125 MG in SODIUM CHL 0.9% 100 ML IV SCH (14:17)
[2022-03-06] MEDS ORDERED: GLYCOPYRROLATE 0.2 MG/ML 1ML VIAL IV ONE (15:00)
[2022-03-06] MEDS: MORPHINE SULFATE INJ 2 MG/ml SYRG IV PRN (15:28)
[2022-03-06] MEDS: NOREPINEPHRINE 8 MG/250ML KIT 250 ML IV SCH (17:22)
[2022-03-06] MEDS: AMINO ACID INFUSION IN D10W 1,000 ML IV NR (20:12)
[2022-03-06] MEDS: PANTOPRAZOLE 40 MG/10 ML VIAL INJ IV SCH (21:13)
[2022-03-07] VITALS (37 sets, daily range): BP systolic 95–152; BP diastolic 67–125
[2022-03-07] MEDS: ACETYLCYSTEINE 20%(200MG/ML) SOL 4ML NEB SCH ×3 (00:17→11:14)
[2022-03-07] MEDS: IPRATROPIUM BROM 0.5 MG/2.5ML INH SOL NEB SCH ×4 (00:17→18:41)
[2022-03-07] MEDS: ALBUTEROL SULF 2.5 MG/0.5ML(0.5%) NEB SOLN NEB SCH ×4 (00:17→18:41)
[2022-03-07] MEDS: ACCU-CHEK COMFORT CURVE STRIP VI SCH ×4 (00:25→16:58)
[2022-03-07] MEDS: CeftoloZANE-TAZOB 3 GM in D5W 5% 100 ML IV SCH ×3 (01:03→16:58)
[2022-03-07 03:50] LABS: Basophils # (auto) 0 10 ^3/uL (0-0.2); Basophils % (auto) 0.1 % (0.0-2.0); Eosinophils # (auto) 0.1 10 ^3/uL (0-0.8); Eosinophils % (auto) 1.3 % (0.0-7.0); Hematocrit 27.1 % (41.0-53.0); Hemoglobin 8.9 g/dL (13.5-17.5); Lymphocytes # (auto) 0.5 10 ^3/uL (0.4-5.4); Lymphocytes % (auto) 6.5 % (10.0-50.0); Mean Corpuscular Hemoglobin 28.1 pg (28.0-32.0); Mean Corpuscular Hgb Conc. 32.7 g/dL (32.0-36.0); Mean Corpuscular Volume 85.9 fL (80.0-100.0); Monocytes # (auto) 0.7 10 ^3/uL (0-1.3); Monocytes % (auto) 9.3 % (0.0-12.0); Neutrophils # (auto) 6.4 10 ^3/uL (1.6-8.6); Neutrophils % (auto) 82.8 % (37.0-80.0); Red Blood Cells 3.16 10^6/uL (4.5-5.90); Red Cell Distribution Width 18.4 % (11.8-14.3); White Blood Cell 7.7 10^3/uL (4.4-10.8)
[2022-03-07 04:29] LABS: BUN/Creatinine Ratio 27.1; Calcium 7.6 mg/dL (8.5-10.1); Potassium 4.2 mmol/L (3.5-5.1)
[2022-03-07] MEDS: MIDODRINE HCL 10 MG TAB PO SCH ×2 (05:29→16:58)
[2022-03-07] MEDS: MORPHINE SULFATE INJ 2 MG/ml SYRG IV PRN (05:31)
[2022-03-07] MEDS: InsuLIN REG 1unit/0.01ml Soln (100units/ml) SC SCH ×4 (05:47→17:03)
[2022-03-07] MEDS ORDERED: FUROSEMIDE 20 MG/2 ML VIAL IV ONE (08:30)
[2022-03-07] MEDS ORDERED: SODIUM BICARBONATE 8.4 % INJ 50ML VIAL IV ONE (08:30)
[2022-03-07] MEDS: PANTOPRAZOLE 40 MG/10 ML VIAL INJ IV SCH ×2 (09:49→20:46)
[2022-03-07] MEDS: SODIUM CHLOR 0.9% PF (SALINE LOCK) 10ML VIAL/SYR IV SCH ×2 (09:50→22:51)
[2022-03-07] MEDS: DAKINS QUARTER STR 0.125% (NaHypochlorite) 473 ML TOPICAL SOL TOP SCH (09:50)
[2022-03-07] MEDS: MUPIROCIN 2% OINT 15gm or 22gm TOP SCH ×2 (09:50→22:51)
[2022-03-07] MEDS: HYDROcodone-ACET 5/325MG TAB PO PRN ×2 (10:06→20:49)
[2022-03-07] MEDS: SODIUM FERR GLUC 62.5MG/5ML 125 MG in SODIUM CHL 0.9% 100 ML IV SCH (13:21)
[2022-03-07] MEDS: AMINO ACID INFUSION IN D10W 1,000 ML IV NR (20:46)
[2022-03-07] MEDS: ALPRAZolam 0.5 MG TAB PO PRN (23:01)
[2022-03-08] VITALS (60 sets, daily range): BP systolic 82–175; BP diastolic 56–98
[2022-03-08] MEDS: ACCU-CHEK COMFORT CURVE STRIP VI SCH ×4 (00:08→17:53)
[2022-03-08] MEDS: MORPHINE SULFATE INJ 2 MG/ml SYRG IV PRN ×3 (00:08→10:01)
[2022-03-08] MEDS: IPRATROPIUM BROM 0.5 MG/2.5ML INH SOL NEB SCH ×4 (00:23→19:15)
[2022-03-08] MEDS: ALBUTEROL SULF 2.5 MG/0.5ML(0.5%) NEB SOLN NEB SCH ×4 (00:23→19:14)
[2022-03-08] MEDS: CeftoloZANE-TAZOB 3 GM in D5W 5% 100 ML IV SCH ×3 (02:05→17:43)
[2022-03-08 04:29] LABS: Basophils # (auto) 0 10 ^3/uL (0-0.2); Basophils % (auto) 0.4 % (0.0-2.0); Eosinophils # (auto) 0.1 10 ^3/uL (0-0.8); Eosinophils % (auto) 1.1 % (0.0-7.0); Hematocrit 27.8 % (41.0-53.0); Hemoglobin 8.6 g/dL (13.5-17.5); Lymphocytes # (auto) 0.6 10 ^3/uL (0.4-5.4); Lymphocytes % (auto) 8.6 % (10.0-50.0); Mean Corpuscular Hemoglobin 26.4 pg (28.0-32.0); Mean Corpuscular Volume 85.2 fL (80.0-100.0); Monocytes # (auto) 0.6 10 ^3/uL (0-1.3); Monocytes % (auto) 8.2 % (0.0-12.0); Neutrophils # (auto) 5.8 10 ^3/uL (1.6-8.6); Neutrophils % (auto) 81.7 % (37.0-80.0); Red Blood Cells 3.26 10^6/uL (4.5-5.90); Red Cell Distribution Width 18.4 % (11.8-14.3); White Blood Cell 7.2 10^3/uL (4.4-10.8)
[2022-03-08 04:47] LABS: Albumin 1.3 g/dL (3.4-5.0); Calcium 7.9 mg/dL (8.5-10.1); Potassium 3.5 mmol/L (3.5-5.1)
[2022-03-08 04:50] LABS: BUN/Creatinine Ratio 30.9; Bilirubin, Total 0.2 mg/dL (0.2-1.0); Phosphorus 3.6 mg/dL (2.5-4.90); Total Protein 5.3 g/dL (6.4-8.2)
[2022-03-08] MEDS: MIDODRINE HCL 10 MG TAB PO SCH ×2 (05:42→18:45)
[2022-03-08] MEDS: InsuLIN REG 1unit/0.01ml Soln (100units/ml) SC SCH ×4 (05:50→17:53)
[2022-03-08 09:30] LABS: Cholesterol 110 mg/dL (< 200)
[2022-03-08 09:32] LABS: HDL Cholesterol 34 mg/dL (40-59); LDL Cholesterol 62 mg/dL (< 100); Triglycerides 105 mg/dL (< 150)
[2022-03-08] MEDS: PANTOPRAZOLE 40 MG/10 ML VIAL INJ IV SCH ×2 (10:25→21:46)
[2022-03-08] MEDS: SODIUM CHLOR 0.9% PF (SALINE LOCK) 10ML VIAL/SYR IV SCH ×2 (10:25→21:46)
[2022-03-08] MEDS: MUPIROCIN 2% OINT 15gm or 22gm TOP SCH ×2 (10:26→21:47)
[2022-03-08] MEDS: ASPirin 81 mg TAB PO SCH (10:27)
[2022-03-08] MEDS: ALPRAZolam 0.5 MG TAB PO PRN (11:05)
[2022-03-08] MEDS ORDERED: NALOXONE HCL 1MG/ML 2ML SYRINGE ONE (11:43)
[2022-03-08] MEDS ORDERED: ROCURONIUM 10MG/ML 10ML VIAL IV ONE (11:48)
[2022-03-08] MEDS ORDERED: ETOMIDATE (2MG/ML) 20ML VIAL IV ONE (11:49)
[2022-03-08] MEDS ORDERED: fentaNYL Drip 2500mCg/250mlNS 250 ML IV SCH (12:00)
[2022-03-08] MEDS ORDERED: NOREPINEPHRINE 8 MG/250ML KIT 250 ML IV ONE (12:17)
[2022-03-08] MEDS: NOREPINEPHRINE 8 MG/250ML KIT 250 ML IV SCH (12:25)
[2022-03-08] MEDS: MIDAZOLAM DRIP 50 mg/50mL 50 ML IV SCH ×2 (12:28→21:39)
[2022-03-08] MEDS: DAKINS QUARTER STR 0.125% (NaHypochlorite) 473 ML TOPICAL SOL TOP SCH (15:00)
[2022-03-08] MEDS: SODIUM FERR GLUC 62.5MG/5ML 125 MG in SODIUM CHL 0.9% 100 ML IV SCH (15:10)
[2022-03-08 15:45] LABS: INR 1.07 (0.9-1.15)
[2022-03-08] MEDS ORDERED: TPN PER PHARMACY 0 ML IV SCH (16:00)
[2022-03-08] MEDS ORDERED: TPN PER PHARMACY IV SCH (16:00)
[2022-03-08] MEDS ORDERED: POTASSIUM PHOSPHATE 22 MEQ in SODIUM CHL 0.9% 100 ML IV ONE (17:00)
[2022-03-08] MEDS: AMINO ACID INFUSION IN D10W 1,000 ML IV NR (18:55)
[2022-03-08] MEDS: ALPRAZolam 0.5 MG TAB PO SCH (21:38)
[2022-03-08] MEDS: ATORVASTATIN 20 MG TAB PO SCH (21:46)
[2022-03-09] VITALS (105 sets, daily range): BP systolic 76–164; BP diastolic 56–104
[2022-03-09] MEDS: MICAFUNGIN SODIUM 100 MG in SODIUM CHL 0.9% 100 ML IV SCH ×2 (00:07→21:44)
[2022-03-09] MEDS: ACCU-CHEK COMFORT CURVE STRIP VI SCH ×4 (00:07→18:25)
[2022-03-09] MEDS: ALBUTEROL SULF 2.5 MG/0.5ML(0.5%) NEB SOLN NEB SCH ×4 (00:33→19:24)
[2022-03-09] MEDS: IPRATROPIUM BROM 0.5 MG/2.5ML INH SOL NEB SCH ×4 (00:34→19:24)
[2022-03-09] MEDS: CeftoloZANE-TAZOB 3 GM in D5W 5% 100 ML IV SCH ×3 (01:57→18:25)
[2022-03-09] MEDS: MORPHINE SULFATE INJ 2 MG/ml SYRG IV PRN (03:42)
[2022-03-09 04:28] LABS: Basophils # (auto) 0 10 ^3/uL (0-0.2); Basophils % (auto) 0.2 % (0.0-2.0); Eosinophils # (auto) 0.1 10 ^3/uL (0-0.8); Eosinophils % (auto) 1.2 % (0.0-7.0); Hematocrit 25.7 % (41.0-53.0); Hemoglobin 8.2 g/dL (13.5-17.5); Lymphocytes # (auto) 0.9 10 ^3/uL (0.4-5.4); Lymphocytes % (auto) 12.5 % (10.0-50.0); Mean Corpuscular Hgb Conc. 31.8 g/dL (32.0-36.0); Mean Corpuscular Volume 85.1 fL (80.0-100.0); Monocytes # (auto) 0.7 10 ^3/uL (0-1.3); Monocytes % (auto) 9.9 % (0.0-12.0); Neutrophils # (auto) 5.2 10 ^3/uL (1.6-8.6); Neutrophils % (auto) 76.2 % (37.0-80.0); Red Blood Cells 3.02 10^6/uL (4.5-5.90); Red Cell Distribution Width 18.2 % (11.8-14.3); White Blood Cell 6.9 10^3/uL (4.4-10.8)
[2022-03-09 04:54] LABS: Chloride 114 mmol/L (98-107); Potassium 3.4 mmol/L (3.5-5.1); Sodium 143 mmol/L (136-145)
[2022-03-09 04:59] LABS: Alanine Aminotransferase < 6 U/L (16-61); Albumin 1.3 g/dL (3.4-5.0); Alkaline Phosphatase 103 U/L (45-117); Anion Gap 8 (5-15); Aspartate Aminotransferase 10 U/L (15-37); BUN/Creatinine Ratio 35.1; Bilirubin, Total 0.2 mg/dL (0.2-1.0); Blood Urea Nitrogen 39 mg/dL (7-18); Calcium 8.1 mg/dL (8.5-10.1); Carbon Dioxide 21 mmol/L (21-32); GFR African American 88 mL/min; GFR Non-African American 73 mL/min; Glucose 73 mg/dL (74-106); Magnesium 1.7 mg/dL (1.6-2.6); Total Protein 5.5 g/dL (6.4-8.2)
[2022-03-09] MEDS: InsuLIN REG 1unit/0.01ml Soln (100units/ml) SC SCH ×4 (05:38→18:00)
[2022-03-09] MEDS: MIDODRINE HCL 10 MG TAB PO SCH ×2 (06:27→18:25)
[2022-03-09] MEDS ORDERED: LIDOCAINE VISCOUS 2% 15ML UD ONE (09:03)
[2022-03-09] MEDS ORDERED: SODIUM CHLORIDE LOCK 0 ML ONE (09:03)
[2022-03-09] MEDS ORDERED: fentaNYL CITRATE 100 MCG/2 ML VL ONE (09:04)
[2022-03-09] MEDS ORDERED: diphenhdrAMINE HCL 50 MG/1 ML VL ONE (09:04)
[2022-03-09] MEDS ORDERED: MIDAZOLAM HCL 5 MG/ML-1ML VIAL ONE (09:04)
[2022-03-09] MEDS: DAKINS QUARTER STR 0.125% (NaHypochlorite) 473 ML TOPICAL SOL TOP SCH (10:00)
[2022-03-09] MEDS: SODIUM CHLOR 0.9% PF (SALINE LOCK) 10ML VIAL/SYR IV SCH ×2 (10:00→21:34)
[2022-03-09] MEDS: ASPirin 81 mg TAB PO SCH (10:30)
[2022-03-09] MEDS: ALPRAZolam 0.5 MG TAB PO SCH ×2 (10:30→21:55)
[2022-03-09] MEDS: PANTOPRAZOLE 40 MG/10 ML VIAL INJ IV SCH ×2 (10:30→21:34)
[2022-03-09] MEDS: MAGNESIUM SULFATE 1GM/100ML 100 ML IV SCH ×2 (10:30→11:00)
[2022-03-09] MEDS: MUPIROCIN 2% OINT 15gm or 22gm TOP SCH ×2 (10:30→21:32)
[2022-03-09] MEDS ORDERED: POTASSIUM CHL 20MEQ/100ML 100 ML IV ONE (12:00)
[2022-03-09] MEDS: NOREPINEPHRINE 8 MG/250ML KIT 250 ML IV SCH (12:15)
[2022-03-09] MEDS: AMINO ACID INFUSION IN D10W 1,000 ML IV NR (16:46)
[2022-03-09] MEDS ORDERED: TPN PER PHARMACY IV NR ×8 (20:00)
[2022-03-09] MEDS: ATORVASTATIN 20 MG TAB PO SCH (21:34)
[2022-03-09] MEDS: MIDAZOLAM DRIP 50 mg/50mL 50 ML IV SCH (21:43)
[2022-03-09 23:44] LABS: Protein, Urine 54.1 mg/dL (0.0-11.9)
[2022-03-10] VITALS (88 sets, daily range): BP systolic 100–170; BP diastolic 68–112
[2022-03-10] MEDS: ACCU-CHEK COMFORT CURVE STRIP VI SCH ×5 (00:08→23:58)
[2022-03-10] MEDS: ALBUTEROL SULF 2.5 MG/0.5ML(0.5%) NEB SOLN NEB SCH ×4 (00:42→18:54)
[2022-03-10] MEDS: IPRATROPIUM BROM 0.5 MG/2.5ML INH SOL NEB SCH ×3 (00:42→18:54)
[2022-03-10] MEDS: CeftoloZANE-TAZOB 3 GM in D5W 5% 100 ML IV SCH ×3 (01:41→18:20)
[2022-03-10] MEDS: PROPOFOL 100 ML IV SCH ×2 (02:49→16:44)
[2022-03-10 04:39] LABS: Basophils # (auto) 0 10 ^3/uL (0-0.2); Eosinophils # (auto) 0.1 10 ^3/uL (0-0.8); Mean Corpuscular Hgb Conc. 31.3 g/dL (32.0-36.0); Monocytes # (auto) 0.5 10 ^3/uL (0-1.3); Neutrophils # (auto) 4.8 10 ^3/uL (1.6-8.6); Red Blood Cells 2.97 10^6/uL (4.5-5.90)
[2022-03-10 04:41] LABS: Basophils % (auto) 0.4 % (0.0-2.0); Eosinophils % (auto) 1.7 % (0.0-7.0); Hematocrit 25.8 % (41.0-53.0); Hemoglobin 8.1 g/dL (13.5-17.5); Lymphocytes # (auto) 0.6 10 ^3/uL (0.4-5.4); Lymphocytes % (auto) 10.4 % (10.0-50.0); Mean Corpuscular Hemoglobin 27.2 pg (28.0-32.0); Mean Corpuscular Volume 86.9 fL (80.0-100.0); Monocytes % (auto) 8.3 % (0.0-12.0); Neutrophils % (auto) 79.2 % (37.0-80.0)
[2022-03-10 04:51] LABS: Alanine Aminotransferase < 6 U/L (16-61); Chloride 115 mmol/L (98-107); Potassium 3.3 mmol/L (3.5-5.1); Sodium 143 mmol/L (136-145)
[2022-03-10 04:57] LABS: Albumin 1.3 g/dL (3.4-5.0); Alkaline Phosphatase 96 U/L (45-117); Anion Gap 8 (5-15); Aspartate Aminotransferase 8 U/L (15-37); BUN/Creatinine Ratio 40.4; Bilirubin, Total 0.2 mg/dL (0.2-1.0); Blood Urea Nitrogen 40 mg/dL (7-18); Calcium 8.5 mg/dL (8.5-10.1); Carbon Dioxide 20 mmol/L (21-32); GFR African American 101 mL/min; GFR Non-African American 83 mL/min; Glucose 113 mg/dL (74-106); Magnesium 2.3 mg/dL (1.6-2.6); Phosphorus 2.6 mg/dL (2.5-4.90)
[2022-03-10] MEDS: MIDODRINE HCL 10 MG TAB PO SCH ×2 (05:38→16:38)
[2022-03-10] MEDS: InsuLIN REG 1unit/0.01ml Soln (100units/ml) SC SCH ×5 (05:44→23:59)
[2022-03-10] MEDS ORDERED: POTASSIUM CHL 20MEQ/100ML 100 ML IV ONE (06:30)
[2022-03-10 08:41] LABS: INR 1.06 (0.9-1.15); Partial Thromboplastin Time 40.8 sec (24.6-33.4)
[2022-03-10] MEDS: PANTOPRAZOLE 40 MG/10 ML VIAL INJ IV SCH ×2 (10:31→21:41)
[2022-03-10] MEDS: ALPRAZolam 0.5 MG TAB PO SCH ×2 (10:31→21:41)
[2022-03-10] MEDS: ASPirin 81 mg TAB PO SCH (10:31)
[2022-03-10] MEDS: SODIUM CHLOR 0.9% PF (SALINE LOCK) 10ML VIAL/SYR IV SCH ×2 (10:36→21:42)
[2022-03-10] MEDS: MUPIROCIN 2% OINT 15gm or 22gm TOP SCH ×2 (10:53→21:42)
[2022-03-10] MEDS: POTASSIUM CHL 20MEQ/100ML 100 ML IV SCH ×2 (12:00→16:44)
[2022-03-10] MEDS: NOREPINEPHRINE 8 MG/250ML KIT 250 ML IV SCH (12:15)
[2022-03-10] MEDS: DAKINS QUARTER STR 0.125% (NaHypochlorite) 473 ML TOPICAL SOL TOP SCH (16:25)
[2022-03-10] MEDS ORDERED: TPN PER PHARMACY IV NR ×9 (20:00)
[2022-03-10] MEDS: ATORVASTATIN 20 MG TAB PO SCH (21:41)
[2022-03-10] MEDS: MICAFUNGIN SODIUM 100 MG in SODIUM CHL 0.9% 100 ML IV SCH (21:43)
[2022-03-11] VITALS (85 sets, daily range): BP systolic 83–232; BP diastolic 54–159
[2022-03-11] MEDS: ALBUTEROL SULF 2.5 MG/0.5ML(0.5%) NEB SOLN NEB SCH ×4 (00:26→18:14)
[2022-03-11] MEDS: IPRATROPIUM BROM 0.5 MG/2.5ML INH SOL NEB SCH ×4 (00:27→18:14)
[2022-03-11] MEDS: CeftoloZANE-TAZOB 3 GM in D5W 5% 100 ML IV SCH ×3 (02:11→19:11)
[2022-03-11] MEDS: PROPOFOL 100 ML IV SCH (04:27)
[2022-03-11 04:37] LABS: Potassium 4.8 mmol/L (3.5-5.1)
[2022-03-11 04:45] LABS: Albumin 1.3 g/dL (3.4-5.0); Bilirubin, Total 0.2 mg/dL (0.2-1.0); Calcium 8.4 mg/dL (8.5-10.1); Magnesium 2.1 mg/dL (1.6-2.6); Phosphorus 2.4 mg/dL (2.5-4.90); Total Protein 5.9 g/dL (6.4-8.2)
[2022-03-11] MEDS: MIDODRINE HCL 10 MG TAB PO SCH ×2 (05:28→17:30)
[2022-03-11] MEDS: InsuLIN REG 1unit/0.01ml Soln (100units/ml) SC SCH ×3 (05:28→17:31)
[2022-03-11] MEDS: ACCU-CHEK COMFORT CURVE STRIP VI SCH ×3 (05:28→17:31)
[2022-03-11] MEDS ORDERED: ROCURONIUM 10MG/ML 10ML VIAL IV ONE (06:59)
[2022-03-11] MEDS ORDERED: SODIUM CHLORIDE LOCK 20 ML ONE (07:04)
[2022-03-11] MEDS ORDERED: ETOMIDATE (2MG/ML) 20ML VIAL IV ONE (07:04)
[2022-03-11] MEDS ORDERED: fentaNYL CITRATE 100 MCG/2 ML VL ONE ×3 (07:04→08:32)
[2022-03-11] MEDS ORDERED: HYDROmorphone HCL 2 MG/ML VL/or syr ONE (07:04)
[2022-03-11] MEDS ORDERED: MIDAZOLAM HCL 2MG/2ML 2ml VIAL (1mg/ml) ONE ×2 (07:04→08:32)
[2022-03-11] MEDS ORDERED: ceFAZolin 1GM/50ML 100 ML IV ONE (07:11)
[2022-03-11] MEDS ORDERED: BUPIVACAINE W/ EPINEPH 0.25% INJ 50ML MDV ONE (07:17)
[2022-03-11] MEDS ORDERED: SODIUM PHOSP 20MEQ(15MMOL) IN NS 100 ML IV ONE (11:00)
[2022-03-11] MEDS: ASPirin 81 mg TAB PO SCH (11:35)
[2022-03-11] MEDS: PANTOPRAZOLE 40 MG/10 ML VIAL INJ IV SCH (11:35)
[2022-03-11] MEDS: SODIUM CHLOR 0.9% PF (SALINE LOCK) 10ML VIAL/SYR IV SCH ×2 (11:35→21:38)
[2022-03-11] MEDS: MUPIROCIN 2% OINT 15gm or 22gm TOP SCH ×2 (11:38→21:39)
[2022-03-11] MEDS: fentaNYL Drip 2500mCg/250mlNS 250 ML IV SCH (14:34)
[2022-03-11] MEDS: ALPRAZolam 0.5 MG TAB PO SCH ×2 (14:34→21:38)
[2022-03-11] MEDS ORDERED: TPN PER PHARMACY IV NR ×7 (20:00)
[2022-03-11] MEDS: ATORVASTATIN 20 MG TAB PO SCH (21:37)
[2022-03-12] VITALS (82 sets, daily range): BP systolic 77–148; BP diastolic 48–100
[2022-03-12] MEDS: ACCU-CHEK COMFORT CURVE STRIP VI SCH ×3 (00:11→12:17)
[2022-03-12] MEDS: IPRATROPIUM BROM 0.5 MG/2.5ML INH SOL NEB SCH ×3 (00:56→18:25)
[2022-03-12] MEDS: ALBUTEROL SULF 2.5 MG/0.5ML(0.5%) NEB SOLN NEB SCH ×3 (00:56→18:25)
[2022-03-12] MEDS: NOREPINEPHRINE 8 MG/250ML KIT 250 ML IV SCH (02:00)
[2022-03-12] MEDS: CeftoloZANE-TAZOB 3 GM in D5W 5% 100 ML IV SCH ×3 (02:02→18:38)
[2022-03-12 04:39] LABS: Chloride 111 mmol/L (98-107); Potassium 3.9 mmol/L (3.5-5.1); Sodium 140 mmol/L (136-145)
[2022-03-12 04:43] LABS: Albumin 1.3 g/dL (3.4-5.0); Anion Gap 11 (5-15); BUN/Creatinine Ratio 76.6; Blood Urea Nitrogen 49 mg/dL (7-18); Calcium 8.3 mg/dL (8.5-10.1); Carbon Dioxide 18 mmol/L (21-32); GFR African American 166 mL/min; GFR Non-African American 137 mL/min; Glucose 125 mg/dL (74-106)
[2022-03-12 04:56] LABS: Alanine Aminotransferase 12 U/L (16-61); Alkaline Phosphatase 109 U/L (45-117); Aspartate Aminotransferase 19 U/L (15-37); Bilirubin, Total < 0.1 mg/dL (0.2-1.0); Phosphorus 4.2 mg/dL (2.5-4.90); Total Protein 5.6 g/dL (6.4-8.2)
[2022-03-12] MEDS: InsuLIN REG 1unit/0.01ml Soln (100units/ml) SC SCH ×3 (06:00→12:00)
[2022-03-12] MEDS: MIDODRINE HCL 10 MG TAB PO SCH ×3 (06:18→18:38)
[2022-03-12] MEDS: DAKINS HALF STR 0.25% (NaHypochlorite) 473 ML TOPICAL SOL TOP SCH (10:00)
[2022-03-12] MEDS: MUPIROCIN 2% OINT 15gm or 22gm TOP SCH ×2 (10:04→22:20)
[2022-03-12] MEDS: ASPirin 81 mg TAB PO SCH (10:04)
[2022-03-12] MEDS: SODIUM CHLOR 0.9% PF (SALINE LOCK) 10ML VIAL/SYR IV SCH ×2 (10:05→22:19)
[2022-03-12] MEDS: fentaNYL Drip 2500mCg/250mlNS 250 ML IV SCH (14:00)
[2022-03-12] MEDS: PROPOFOL 100 ML IV SCH (19:15)
[2022-03-12] MEDS ORDERED: TPN PER PHARMACY IV NR ×10 (20:00)
[2022-03-12] MEDS: ALPRAZolam 0.5 MG TAB PO SCH ×2 (22:19)
[2022-03-12] MEDS: ATORVASTATIN 20 MG TAB PO SCH (22:19)
[2022-03-13] VITALS (48 sets, daily range): BP systolic 87–140; BP diastolic 53–99
[2022-03-13] MEDS: IPRATROPIUM BROM 0.5 MG/2.5ML INH SOL NEB SCH ×4 (00:08→18:26)
[2022-03-13] MEDS: ALBUTEROL SULF 2.5 MG/0.5ML(0.5%) NEB SOLN NEB SCH ×4 (00:08→18:26)
[2022-03-13] MEDS: CeftoloZANE-TAZOB 3 GM in D5W 5% 100 ML IV SCH ×3 (01:36→17:57)
[2022-03-13] MEDS: NOREPINEPHRINE 8 MG/250ML KIT 250 ML IV SCH (02:30)
[2022-03-13 04:41] LABS: Albumin 1.4 g/dL (3.4-5.0); BUN/Creatinine Ratio 72.6; Calcium 8.1 mg/dL (8.5-10.1); Magnesium 2.1 mg/dL (1.6-2.6); Potassium 4.3 mmol/L (3.5-5.1)
[2022-03-13 04:44] LABS: Bilirubin, Total 0.2 mg/dL (0.2-1.0); Phosphorus 3.3 mg/dL (2.5-4.90); Total Protein 5.9 g/dL (6.4-8.2)
[2022-03-13] MEDS: MIDODRINE HCL 10 MG TAB PO SCH ×3 (05:27→17:57)
[2022-03-13] MEDS: MORPHINE SULFATE INJ 2 MG/ml SYRG IV PRN ×3 (05:27→17:57)
[2022-03-13 07:54] LABS: Monocytes % (auto) 7.3 % (0.0-12.0)
[2022-03-13 07:55] LABS: Basophils # (auto) 0.1 10 ^3/uL (0-0.2); Basophils % (auto) 0.9 % (0.0-2.0); Eosinophils # (auto) 0.1 10 ^3/uL (0-0.8); Hematocrit 26.3 % (41.0-53.0); Hemoglobin 7.8 g/dL (13.5-17.5); Lymphocytes # (auto) 0.9 10 ^3/uL (0.4-5.4); Lymphocytes % (auto) 14.7 % (10.0-50.0); Mean Corpuscular Hemoglobin 27.1 pg (28.0-32.0); Mean Corpuscular Hgb Conc. 29.7 g/dL (32.0-36.0); Mean Corpuscular Volume 91.3 fL (80.0-100.0); Monocytes # (auto) 0.5 10 ^3/uL (0-1.3); Neutrophils # (auto) 4.7 10 ^3/uL (1.6-8.6); Neutrophils % (auto) 75.1 % (37.0-80.0); Nucleated Red Blood Cells % 0.5 %; Red Blood Cells 2.88 10^6/uL (4.5-5.90); Red Cell Distribution Width 19.3 % (11.8-14.3); White Blood Cell 6.2 10^3/uL (4.4-10.8)
[2022-03-13] MEDS: ALPRAZolam 0.5 MG TAB PO SCH ×2 (09:28→22:30)
[2022-03-13] MEDS: ASPirin 81 mg TAB PO SCH (09:28)
[2022-03-13] MEDS: MUPIROCIN 2% OINT 15gm or 22gm TOP SCH ×2 (09:29→22:30)
[2022-03-13] MEDS: SODIUM CHLOR 0.9% PF (SALINE LOCK) 10ML VIAL/SYR IV SCH ×2 (09:49→22:00)
[2022-03-13] MEDS: DAKINS HALF STR 0.25% (NaHypochlorite) 473 ML TOPICAL SOL TOP SCH (09:50)
[2022-03-13] MEDS: fentaNYL Drip 2500mCg/250mlNS 250 ML IV SCH (14:00)
[2022-03-13] MEDS: PROPOFOL 100 ML IV SCH (19:15)
[2022-03-13] MEDS: HYDROcodone-ACET 5/325MG TAB PO PRN (20:21)
[2022-03-13] MEDS: ATORVASTATIN 20 MG TAB PO SCH (22:30)
[2022-03-14] VITALS (40 sets, daily range): BP systolic 87–145; BP diastolic 58–100
[2022-03-14] MEDS: IPRATROPIUM BROM 0.5 MG/2.5ML INH SOL NEB SCH ×4 (00:13→18:22)
[2022-03-14] MEDS: ALBUTEROL SULF 2.5 MG/0.5ML(0.5%) NEB SOLN NEB SCH ×4 (00:13→18:22)
[2022-03-14] MEDS: MORPHINE SULFATE INJ 2 MG/ml SYRG IV PRN ×4 (01:23→22:30)
[2022-03-14] MEDS: CeftoloZANE-TAZOB 3 GM in D5W 5% 100 ML IV SCH ×3 (02:23→18:07)
[2022-03-14] MEDS: NOREPINEPHRINE 8 MG/250ML KIT 250 ML IV SCH (02:30)
[2022-03-14] MEDS: HYDROcodone-ACET 5/325MG TAB PO PRN ×2 (04:40→14:22)
[2022-03-14] MEDS: MIDODRINE HCL 10 MG TAB PO SCH ×3 (06:00→18:07)
[2022-03-14] MEDS: ASPirin 81 mg TAB PO SCH (09:58)
[2022-03-14] MEDS: ALPRAZolam 0.5 MG TAB PO SCH ×2 (09:58→22:27)
[2022-03-14] MEDS: DAKINS HALF STR 0.25% (NaHypochlorite) 473 ML TOPICAL SOL TOP SCH (10:04)
[2022-03-14] MEDS: MUPIROCIN 2% OINT 15gm or 22gm TOP SCH ×2 (10:04→22:00)
[2022-03-14] MEDS: SODIUM CHLOR 0.9% PF (SALINE LOCK) 10ML VIAL/SYR IV SCH ×2 (10:04→22:00)
[2022-03-14] MEDS: fentaNYL Drip 2500mCg/250mlNS 250 ML IV SCH (14:00)
[2022-03-14] MEDS: PROPOFOL 100 ML IV SCH (19:15)
[2022-03-14] MEDS: ATORVASTATIN 20 MG TAB PO SCH (22:27)
[2022-03-15] VITALS (25 sets, daily range): BP systolic 98–139; BP diastolic 61–87
[2022-03-15] MEDS: IPRATROPIUM BROM 0.5 MG/2.5ML INH SOL NEB SCH ×4 (00:29→18:04)
[2022-03-15] MEDS: ALBUTEROL SULF 2.5 MG/0.5ML(0.5%) NEB SOLN NEB SCH ×4 (00:29→18:04)
[2022-03-15] MEDS: HYDROcodone-ACET 5/325MG TAB PO PRN (00:48)
[2022-03-15] MEDS: MORPHINE SULFATE INJ 2 MG/ml SYRG IV PRN ×4 (02:26→14:55)
[2022-03-15] MEDS: CeftoloZANE-TAZOB 3 GM in D5W 5% 100 ML IV SCH ×2 (02:26→11:18)
[2022-03-15] MEDS: NOREPINEPHRINE 8 MG/250ML KIT 250 ML IV SCH (02:30)
[2022-03-15] MEDS: MIDODRINE HCL 10 MG TAB PO SCH ×3 (05:56→18:00)
[2022-03-15 07:09] LABS: Eosinophils # (auto) 0.1 10 ^3/uL (0-0.8); Lymphocytes # (auto) 0.9 10 ^3/uL (0.4-5.4); Mean Corpuscular Volume 87.3 fL (80.0-100.0); Monocytes # (auto) 0.6 10 ^3/uL (0-1.3)
[2022-03-15 07:11] LABS: Basophils # (auto) 0.1 10 ^3/uL (0-0.2); Basophils % (auto) 0.6 % (0.0-2.0); Eosinophils % (auto) 1.5 % (0.0-7.0); Hematocrit 24.2 % (41.0-53.0); Hemoglobin 7.6 g/dL (13.5-17.5); Lymphocytes % (auto) 10.1 % (10.0-50.0); Mean Corpuscular Hemoglobin 27.5 pg (28.0-32.0); Mean Corpuscular Hgb Conc. 31.5 g/dL (32.0-36.0); Monocytes % (auto) 6.9 % (0.0-12.0); Neutrophils # (auto) 7.1 10 ^3/uL (1.6-8.6); Neutrophils % (auto) 80.9 % (37.0-80.0); Red Blood Cells 2.78 10^6/uL (4.5-5.90); Red Cell Distribution Width 18.2 % (11.8-14.3); White Blood Cell 8.8 10^3/uL (4.4-10.8)
[2022-03-15 07:16] LABS: BUN/Creatinine Ratio 46.3; Calcium 8.4 mg/dL (8.5-10.1); Magnesium 1.6 mg/dL (1.6-2.6); Potassium 4.1 mmol/L (3.5-5.1)
[2022-03-15] MEDS: ALPRAZolam 0.5 MG TAB PO SCH ×2 (10:50→21:35)
[2022-03-15] MEDS: ASPirin 81 mg TAB PO SCH (10:50)
[2022-03-15] MEDS: MUPIROCIN 2% OINT 15gm or 22gm TOP SCH ×2 (10:51→21:36)
[2022-03-15] MEDS: DAKINS HALF STR 0.25% (NaHypochlorite) 473 ML TOPICAL SOL TOP SCH (10:52)
[2022-03-15] MEDS: SODIUM CHLOR 0.9% PF (SALINE LOCK) 10ML VIAL/SYR IV SCH ×2 (11:18→21:36)
[2022-03-15] MEDS: ACETYLCYSTEINE 20%(200MG/ML) SOL 4ML NEB SCH ×2 (12:31→18:04)
[2022-03-15] MEDS: fentaNYL Drip 2500mCg/250mlNS 250 ML IV SCH (14:00)
[2022-03-15] MEDS: LORazepam 2MG/ML-1ML VIAL IV PRN (14:51)
[2022-03-15] MEDS: PROPOFOL 100 ML IV SCH (19:15)
[2022-03-15] MEDS: ATORVASTATIN 20 MG TAB PO SCH (21:35)
[2022-03-16] VITALS (23 sets, daily range): BP systolic 85–136; BP diastolic 56–92
[2022-03-16] MEDS: IPRATROPIUM BROM 0.5 MG/2.5ML INH SOL NEB SCH ×4 (00:11→18:08)
[2022-03-16] MEDS: ALBUTEROL SULF 2.5 MG/0.5ML(0.5%) NEB SOLN NEB SCH ×4 (00:11→18:08)
[2022-03-16] MEDS: NOREPINEPHRINE 8 MG/250ML KIT 250 ML IV SCH (02:30)
[2022-03-16] MEDS: ACETYLCYSTEINE 20%(200MG/ML) SOL 4ML NEB SCH ×3 (06:14→18:08)
[2022-03-16] MEDS: MIDODRINE HCL 10 MG TAB PO SCH ×3 (06:30→18:00)
[2022-03-16] MEDS: SODIUM CHLOR 0.9% PF (SALINE LOCK) 10ML VIAL/SYR IV SCH ×2 (10:47→21:45)
[2022-03-16] MEDS: ASPirin 81 mg TAB PO SCH (10:49)
[2022-03-16] MEDS: DAKINS HALF STR 0.25% (NaHypochlorite) 473 ML TOPICAL SOL TOP SCH (10:50)
[2022-03-16] MEDS: MUPIROCIN 2% OINT 15gm or 22gm TOP SCH ×2 (10:50→21:48)
[2022-03-16] MEDS: ALPRAZolam 0.5 MG TAB PO SCH ×2 (10:50→21:45)
[2022-03-16] MEDS: LORazepam 2MG/ML-1ML VIAL IV PRN (12:41)
[2022-03-16] MEDS: fentaNYL Drip 2500mCg/250mlNS 250 ML IV SCH (14:00)
[2022-03-16] MEDS: PROPOFOL 100 ML IV SCH (19:15)
[2022-03-16] MEDS: ATORVASTATIN 20 MG TAB PO SCH (21:45)
[2022-03-16] MEDS: MORPHINE SULFATE INJ 2 MG/ml SYRG IV PRN (21:56)
[2022-03-16] MEDS: TOBRAMYCIN 300 MG/5 ML NEB SOLN NEB SCH (22:04)
[2022-03-17] VITALS (36 sets, daily range): BP systolic 92–160; BP diastolic 50–109
[2022-03-17] MEDS: NOREPINEPHRINE 8 MG/250ML KIT 250 ML IV SCH (02:30)
[2022-03-17] MEDS: MORPHINE SULFATE INJ 2 MG/ml SYRG IV PRN ×4 (02:45→22:56)
[2022-03-17] MEDS ORDERED: METOCLOPRAMIDE HCL 5MG/ml INJ 2ml VIAL ONE (03:53)
[2022-03-17 04:36] LABS: Basophils # (auto) 0 10 ^3/uL (0-0.2); Eosinophils # (auto) 0 10 ^3/uL (0-0.8); Hemoglobin 8.3 g/dL (13.5-17.5); Lymphocytes # (auto) 0.6 10 ^3/uL (0.4-5.4); Monocytes # (auto) 0.8 10 ^3/uL (0-1.3); White Blood Cell 11.5 10^3/uL (4.4-10.8)
[2022-03-17 04:41] LABS: Basophils % (auto) 0.4 % (0.0-2.0); Eosinophils % (auto) 0.1 % (0.0-7.0); Hematocrit 27.2 % (41.0-53.0); Lymphocytes % (auto) 5.4 % (10.0-50.0); Mean Corpuscular Hemoglobin 27.1 pg (28.0-32.0); Mean Corpuscular Hgb Conc. 30.4 g/dL (32.0-36.0); Mean Corpuscular Volume 89.2 fL (80.0-100.0); Monocytes % (auto) 7.2 % (0.0-12.0); Neutrophils % (auto) 86.9 % (37.0-80.0); Red Blood Cells 3.05 10^6/uL (4.5-5.90); Red Cell Distribution Width 18.7 % (11.8-14.3)
[2022-03-17 04:56] LABS: Albumin 1.4 g/dL (3.4-5.0); Calcium 8.2 mg/dL (8.5-10.1); Potassium 3.9 mmol/L (3.5-5.1)
[2022-03-17 04:59] LABS: BUN/Creatinine Ratio 53.1; Bilirubin, Total 0.3 mg/dL (0.2-1.0); Total Protein 6.2 g/dL (6.4-8.2)
[2022-03-17] MEDS: MIDODRINE HCL 10 MG TAB PO SCH ×3 (06:03→18:00)
[2022-03-17] MEDS: ALBUTEROL SULF 2.5 MG/0.5ML(0.5%) NEB SOLN NEB SCH ×4 (06:37→17:47)
[2022-03-17] MEDS: ACETYLCYSTEINE 20%(200MG/ML) SOL 4ML NEB SCH ×3 (06:37→17:47)
[2022-03-17] MEDS: IPRATROPIUM BROM 0.5 MG/2.5ML INH SOL NEB SCH ×4 (06:37→17:47)
[2022-03-17] MEDS: TOBRAMYCIN 300 MG/5 ML NEB SOLN NEB SCH ×2 (06:46→22:31)
[2022-03-17] MEDS: HYDROcodone-ACET 5/325MG TAB PO PRN (08:39)
[2022-03-17] MEDS: MUPIROCIN 2% OINT 15gm or 22gm TOP SCH ×2 (10:41→21:19)
[2022-03-17] MEDS: SODIUM CHLOR 0.9% PF (SALINE LOCK) 10ML VIAL/SYR IV SCH ×2 (10:41→21:19)
[2022-03-17] MEDS: DAKINS HALF STR 0.25% (NaHypochlorite) 473 ML TOPICAL SOL TOP SCH (10:41)
[2022-03-17] MEDS: ALPRAZolam 0.5 MG TAB PO SCH ×2 (10:41→21:18)
[2022-03-17] MEDS: ASPirin 81 mg TAB PO SCH (10:41)
[2022-03-17] MEDS: SODIUM CHLORIDE 0.9% 1,000 ML IV SCH ×2 (14:36→22:15)
[2022-03-17] MEDS ORDERED: TPN PER PHARMACY IV SCH (15:45)
[2022-03-17] MEDS: InsuLIN REG 1unit/0.01ml Soln (100units/ml) SC SCH (18:00)
[2022-03-17] MEDS: ACCU-CHEK COMFORT CURVE STRIP VI SCH (18:00)
[2022-03-17] MEDS ORDERED: DEXTROSE (50%) 50ML SYRG IV SCH (18:00)
[2022-03-17 18:25] LABS: Magnesium 1.4 mg/dL (1.6-2.6)
[2022-03-17 18:27] LABS: Phosphorus 3.4 mg/dL (2.5-4.90)
[2022-03-17] MEDS ORDERED: CLINIMIX PER PHARMACY IV NR (20:00)
[2022-03-17] MEDS: ATORVASTATIN 20 MG TAB PO SCH (21:19)
[2022-03-18] VITALS (86 sets, daily range): BP systolic 97–159; BP diastolic 64–99
[2022-03-18] MEDS: IPRATROPIUM BROM 0.5 MG/2.5ML INH SOL NEB SCH ×4 (00:18→18:37)
[2022-03-18] MEDS: ALBUTEROL SULF 2.5 MG/0.5ML(0.5%) NEB SOLN NEB SCH ×4 (00:18→18:37)
[2022-03-18 05:22] LABS: Albumin 1.4 g/dL (3.4-5.0); Calcium 7.9 mg/dL (8.5-10.1); Magnesium 1.3 mg/dL (1.6-2.6); Potassium 3.9 mmol/L (3.5-5.1)
[2022-03-18 05:26] LABS: BUN/Creatinine Ratio 38.6; Bilirubin, Total 0.2 mg/dL (0.2-1.0); Phosphorus 2.6 mg/dL (2.5-4.90); Total Protein 5.9 g/dL (6.4-8.2)
[2022-03-18] MEDS: MIDODRINE HCL 10 MG TAB PO SCH ×3 (05:32→18:36)
[2022-03-18] MEDS: ACCU-CHEK COMFORT CURVE STRIP VI SCH ×4 (05:33→18:00)
[2022-03-18] MEDS: HYDROcodone-ACET 5/325MG TAB PO PRN ×3 (05:36→21:14)
[2022-03-18] MEDS: InsuLIN REG 1unit/0.01ml Soln (100units/ml) SC SCH ×4 (05:52→18:00)
[2022-03-18] MEDS: SODIUM CHLORIDE 0.9% 1,000 ML IV SCH (06:15)
[2022-03-18] MEDS: ACETYLCYSTEINE 20%(200MG/ML) SOL 4ML NEB SCH (06:43)
[2022-03-18] MEDS: MORPHINE SULFATE INJ 2 MG/ml SYRG IV PRN ×2 (08:34→15:52)
[2022-03-18] MEDS: DAKINS HALF STR 0.25% (NaHypochlorite) 473 ML TOPICAL SOL TOP SCH (10:00)
[2022-03-18] MEDS: MAGNESIUM SULFATE 1GM/100ML 100 ML IV SCH ×2 (10:06→11:00)
[2022-03-18] MEDS: ASPirin 81 mg TAB PO SCH (10:06)
[2022-03-18] MEDS: MUPIROCIN 2% OINT 15gm or 22gm TOP SCH ×2 (10:06→21:15)
[2022-03-18] MEDS: ALPRAZolam 0.5 MG TAB PO SCH ×2 (10:06→21:14)
[2022-03-18] MEDS: SODIUM CHLOR 0.9% PF (SALINE LOCK) 10ML VIAL/SYR IV SCH ×2 (10:07→21:14)
[2022-03-18] MEDS ORDERED: D5W/SOD CHL 0.45% 1,000 ML IV SCH (11:30)
[2022-03-18] MEDS: TOBRAMYCIN 300 MG/5 ML NEB SOLN NEB SCH ×2 (12:42→22:20)
[2022-03-18] MEDS ORDERED: TPN PER PHARMACY IV NR ×9 (20:00)
[2022-03-18] MEDS: ATORVASTATIN 20 MG TAB PO SCH (21:14)
[2022-03-19] VITALS (30 sets, daily range): BP systolic 83–162; BP diastolic 55–100
[2022-03-19] MEDS: ALBUTEROL SULF 2.5 MG/0.5ML(0.5%) NEB SOLN NEB SCH ×4 (00:25→18:03)
[2022-03-19] MEDS: IPRATROPIUM BROM 0.5 MG/2.5ML INH SOL NEB SCH ×4 (00:25→18:03)
[2022-03-19] MEDS: MORPHINE SULFATE INJ 2 MG/ml SYRG IV PRN (01:17)
[2022-03-19 05:54] LABS: Basophils # (auto) 0 10 ^3/uL (0-0.2); Basophils % (auto) 0.6 % (0.0-2.0); Eosinophils # (auto) 0.1 10 ^3/uL (0-0.8); Eosinophils % (auto) 1.2 % (0.0-7.0); Hemoglobin 7.5 g/dL (13.5-17.5); Lymphocytes # (auto) 1.3 10 ^3/uL (0.4-5.4); Lymphocytes % (auto) 17.4 % (10.0-50.0); Mean Corpuscular Hemoglobin 27.6 pg (28.0-32.0); Mean Corpuscular Hgb Conc. 31.4 g/dL (32.0-36.0); Monocytes # (auto) 0.7 10 ^3/uL (0-1.3); Monocytes % (auto) 10.1 % (0.0-12.0); Neutrophils # (auto) 5.2 10 ^3/uL (1.6-8.6); Neutrophils % (auto) 70.7 % (37.0-80.0); Nucleated Red Blood Cells % 0.1 %; Red Blood Cells 2.72 10^6/uL (4.5-5.90); Red Cell Distribution Width 18.7 % (11.8-14.3); White Blood Cell 7.4 10^3/uL (4.4-10.8)
[2022-03-19 05:57] LABS: Albumin 1.3 g/dL (3.4-5.0); Calcium 7.8 mg/dL (8.5-10.1); Magnesium 1.8 mg/dL (1.6-2.6); Potassium 3.6 mmol/L (3.5-5.1)
[2022-03-19] MEDS: InsuLIN REG 1unit/0.01ml Soln (100units/ml) SC SCH ×2 (06:00)
[2022-03-19 06:01] LABS: BUN/Creatinine Ratio 51.3; Bilirubin, Total 0.2 mg/dL (0.2-1.0); Phosphorus 2.9 mg/dL (2.5-4.90); Total Protein 5.7 g/dL (6.4-8.2)
[2022-03-19] MEDS: HYDROcodone-ACET 5/325MG TAB PO PRN ×3 (06:13→15:01)
[2022-03-19] MEDS: MIDODRINE HCL 10 MG TAB PO SCH ×3 (06:14→18:00)
[2022-03-19] MEDS: ACCU-CHEK COMFORT CURVE STRIP VI SCH ×2 (06:14)
[2022-03-19] MEDS: DAKINS HALF STR 0.25% (NaHypochlorite) 473 ML TOPICAL SOL TOP SCH (10:00)
[2022-03-19] MEDS: MUPIROCIN 2% OINT 15gm or 22gm TOP SCH ×2 (10:00→22:48)
[2022-03-19] MEDS: ASPirin 81 mg TAB PO SCH (10:00)
[2022-03-19] MEDS: SODIUM CHLOR 0.9% PF (SALINE LOCK) 10ML VIAL/SYR IV SCH ×2 (10:00→22:49)
[2022-03-19] MEDS: ALPRAZolam 0.5 MG TAB PO SCH ×2 (10:00→22:48)
[2022-03-19] MEDS: TOBRAMYCIN 300 MG/5 ML NEB SOLN NEB SCH ×2 (10:12→23:21)
[2022-03-19] MEDS ORDERED: GENTAMICIN PER PHARMACY 0 ML IV SCH (11:30)
[2022-03-19] MEDS: CEFTAZIDIME-AVIBACTAM 2.5gm in D5W 100 ML IV SCH ×2 (12:00→14:54)
[2022-03-19] MEDS ORDERED: GENTAMICIN SULFATE 400 MG in D5W 5% 100 ML IV SCH (14:00)
[2022-03-19] MEDS ORDERED: TPN PER PHARMACY IV NR ×9 (20:00)
[2022-03-19] MEDS: ATORVASTATIN 20 MG TAB PO SCH (22:48)
[2022-03-19] MEDS: METOCLOPRAMIDE 10 mg/10ml ORAL soln GT SCH (22:50)
[2022-03-19] MEDS: fentaNYL 25MCG/HR 25 MCG/HR PAT TD SCH (23:35)
[2022-03-20] MEDS: IPRATROPIUM BROM 0.5 MG/2.5ML INH SOL NEB SCH ×4 (00:24→18:14)
[2022-03-20] MEDS: ALBUTEROL SULF 2.5 MG/0.5ML(0.5%) NEB SOLN NEB SCH ×4 (00:25→18:14)
[2022-03-20] MEDS: CEFTAZIDIME-AVIBACTAM 2.5gm in D5W 100 ML IV SCH ×3 (04:50→20:54)
[2022-03-20] MEDS: METOCLOPRAMIDE 10 mg/10ml ORAL soln GT SCH ×3 (05:17→22:00)
[2022-03-20] MEDS: MIDODRINE HCL 10 MG TAB PO SCH ×3 (05:17→18:00)
[2022-03-20 05:24] LABS: Calcium 7.4 mg/dL (8.5-10.1); Potassium 3.9 mmol/L (3.5-5.1)
[2022-03-20 05:26] LABS: BUN/Creatinine Ratio 71.4
[2022-03-20] MEDS: TOBRAMYCIN 300 MG/5 ML NEB SOLN NEB SCH (09:38)
[2022-03-20] MEDS: ALPRAZolam 0.5 MG TAB PO SCH ×2 (10:00→22:55)
[2022-03-20] MEDS: DAKINS HALF STR 0.25% (NaHypochlorite) 473 ML TOPICAL SOL TOP SCH (10:00)
[2022-03-20] MEDS: SODIUM CHLOR 0.9% PF (SALINE LOCK) 10ML VIAL/SYR IV SCH ×2 (10:00→22:00)
[2022-03-20] MEDS: ASPirin 81 mg TAB PO SCH (10:00)
[2022-03-20] MEDS: MUPIROCIN 2% OINT 15gm or 22gm TOP SCH ×2 (10:00→22:55)
[2022-03-20 18:00] VITALS: BP 85/57
[2022-03-20 19:00] VITALS: BP 97/66
[2022-03-20 20:00] VITALS: BP 125/82
[2022-03-20 22:00] VITALS: BP 113/80
[2022-03-20] MEDS: ATORVASTATIN 20 MG TAB PO SCH (22:54)
[2022-03-20 23:00] VITALS: BP 99/66
[2022-03-21] VITALS (23 sets, daily range): BP systolic 87–139; BP diastolic 60–96
[2022-03-21] MEDS: ALBUTEROL SULF 2.5 MG/0.5ML(0.5%) NEB SOLN NEB SCH ×4 (00:27→18:45)
[2022-03-21] MEDS: IPRATROPIUM BROM 0.5 MG/2.5ML INH SOL NEB SCH ×4 (00:27→18:45)
[2022-03-21] MEDS: CEFTAZIDIME-AVIBACTAM 2.5gm in D5W 100 ML IV SCH ×3 (04:51→20:10)
[2022-03-21 05:32] LABS: Calcium 7.5 mg/dL (8.5-10.1); Potassium 3.7 mmol/L (3.5-5.1)
[2022-03-21 05:34] LABS: BUN/Creatinine Ratio 53.8
[2022-03-21] MEDS: METOCLOPRAMIDE 10 mg/10ml ORAL soln GT SCH (06:38)
[2022-03-21] MEDS: GENTAMICIN SULFATE 320 MG in D5W 5% 100 ML IV SCH (06:39)
[2022-03-21] MEDS: MIDODRINE HCL 10 MG TAB PO SCH ×3 (06:40→18:00)
[2022-03-21] MEDS: ASPirin 81 mg TAB PO SCH (10:00)
[2022-03-21] MEDS: ALPRAZolam 0.5 MG TAB PO SCH ×2 (10:00→20:09)
[2022-03-21] MEDS: DAKINS HALF STR 0.25% (NaHypochlorite) 473 ML TOPICAL SOL TOP SCH (10:00)
[2022-03-21] MEDS: SODIUM CHLOR 0.9% PF (SALINE LOCK) 10ML VIAL/SYR IV SCH ×2 (10:00→20:11)
[2022-03-21] MEDS: MUPIROCIN 2% OINT 15gm or 22gm TOP SCH ×2 (10:00→20:11)
[2022-03-21] MEDS: HYDROcodone-ACET 5/325MG TAB PO PRN (20:10)
[2022-03-21] MEDS: ATORVASTATIN 20 MG TAB PO SCH (20:16)
[2022-03-21] MEDS: LORazepam 2MG/ML-1ML VIAL IV PRN (23:01)
[2022-03-22] VITALS (21 sets, daily range): BP systolic 84–129; BP diastolic 55–90
[2022-03-22] MEDS: IPRATROPIUM BROM 0.5 MG/2.5ML INH SOL NEB SCH ×5 (00:45→23:34)
[2022-03-22] MEDS: ALBUTEROL SULF 2.5 MG/0.5ML(0.5%) NEB SOLN NEB SCH ×5 (00:46→23:34)
[2022-03-22] MEDS: MORPHINE SULFATE INJ 2 MG/ml SYRG IV PRN ×3 (04:05→20:25)
[2022-03-22] MEDS: CEFTAZIDIME-AVIBACTAM 2.5gm in D5W 100 ML IV SCH (04:06)
[2022-03-22 05:03] LABS: Basophils # (auto) 0 10 ^3/uL (0-0.2); Basophils % (auto) 0.6 % (0.0-2.0); Eosinophils # (auto) 0.3 10 ^3/uL (0-0.8); Hemoglobin 7.9 g/dL (13.5-17.5); Lymphocytes # (auto) 0.9 10 ^3/uL (0.4-5.4)
[2022-03-22 05:04] LABS: Eosinophils % (auto) 3.7 % (0.0-7.0); Hematocrit 24.4 % (41.0-53.0); Lymphocytes % (auto) 11.9 % (10.0-50.0); Mean Corpuscular Hemoglobin 28.3 pg (28.0-32.0); Mean Corpuscular Hgb Conc. 32.5 g/dL (32.0-36.0); Mean Corpuscular Volume 86.9 fL (80.0-100.0); Monocytes # (auto) 0.7 10 ^3/uL (0-1.3); Monocytes % (auto) 8.4 % (0.0-12.0); Neutrophils % (auto) 75.4 % (37.0-80.0); Red Blood Cells 2.81 10^6/uL (4.5-5.90); Red Cell Distribution Width 18.9 % (11.8-14.3); White Blood Cell 7.9 10^3/uL (4.4-10.8)
[2022-03-22 05:19] LABS: Calcium 7.5 mg/dL (8.5-10.1); Potassium 3.7 mmol/L (3.5-5.1)
[2022-03-22 05:22] LABS: BUN/Creatinine Ratio 25.6
[2022-03-22] MEDS: MIDODRINE HCL 10 MG TAB PO SCH ×3 (05:30→18:22)
[2022-03-22] MEDS: ASPirin 81 mg TAB PO SCH (10:00)
[2022-03-22] MEDS: SODIUM CHLOR 0.9% PF (SALINE LOCK) 10ML VIAL/SYR IV SCH ×2 (10:00→22:00)
[2022-03-22] MEDS: MUPIROCIN 2% OINT 15gm or 22gm TOP SCH ×2 (10:00→22:00)
[2022-03-22] MEDS: ALPRAZolam 0.5 MG TAB PO SCH ×2 (10:00→22:00)
[2022-03-22] MEDS: DAKINS HALF STR 0.25% (NaHypochlorite) 473 ML TOPICAL SOL TOP SCH (10:00)
[2022-03-22] MEDS: CHOLESTYRAMINE 4 GM POWDER GT SCH (11:18)
[2022-03-22] MEDS: LORazepam 2MG/ML-1ML VIAL IV PRN (12:52)
[2022-03-22] MEDS: GENTAMICIN SULFATE 320 MG in D5W 5% 100 ML IV SCH (18:22)
[2022-03-22] MEDS: fentaNYL 25MCG/HR 25 MCG/HR PAT TD SCH (21:00)
[2022-03-22] MEDS: ATORVASTATIN 20 MG TAB PO SCH (22:00)
[2022-03-23] VITALS (7 sets, daily range): BP systolic 109–160; BP diastolic 73–90
[2022-03-23] MEDS: CEFTAZIDIME-AVIBACTAM 2.5gm in D5W 100 ML IV SCH ×3 (04:00→20:18)
[2022-03-23 05:00] LABS: Eosinophils # (auto) 0 10 ^3/uL (0-0.8); Hemoglobin 8.5 g/dL (13.5-17.5); Lymphocytes # (auto) 0.7 10 ^3/uL (0.4-5.4); Lymphocytes % (auto) 6.5 % (10.0-50.0); Monocytes # (auto) 0.6 10 ^3/uL (0-1.3)
[2022-03-23 05:10] LABS: Basophils # (auto) 0 10 ^3/uL (0-0.2); Basophils % (auto) 0.4 % (0.0-2.0); Eosinophils % (auto) 0.4 % (0.0-7.0); Hematocrit 27.7 % (41.0-53.0); Mean Corpuscular Hemoglobin 27.5 pg (28.0-32.0); Mean Corpuscular Hgb Conc. 30.7 g/dL (32.0-36.0); Mean Corpuscular Volume 89.6 fL (80.0-100.0); Neutrophils # (auto) 8.9 10 ^3/uL (1.6-8.6); Neutrophils % (auto) 86.7 % (37.0-80.0); Nucleated Red Blood Cells % 0.1 %; Red Blood Cells 3.08 10^6/uL (4.5-5.90); White Blood Cell 10.3 10^3/uL (4.4-10.8)
[2022-03-23 05:17] LABS: BUN/Creatinine Ratio 21.3; Calcium 7.8 mg/dL (8.5-10.1); Potassium 3.4 mmol/L (3.5-5.1)
[2022-03-23] MEDS: MIDODRINE HCL 10 MG TAB PO SCH ×3 (06:03→18:01)
[2022-03-23] MEDS: MORPHINE SULFATE INJ 2 MG/ml SYRG IV PRN ×3 (06:04→22:41)
[2022-03-23] MEDS: IPRATROPIUM BROM 0.5 MG/2.5ML INH SOL NEB SCH ×4 (06:22→23:48)
[2022-03-23] MEDS: ALBUTEROL SULF 2.5 MG/0.5ML(0.5%) NEB SOLN NEB SCH ×4 (06:22→23:48)
[2022-03-23] MEDS: MUPIROCIN 2% OINT 15gm or 22gm TOP SCH ×2 (09:56→22:15)
[2022-03-23] MEDS: ASPirin 81 mg TAB PO SCH (09:56)
[2022-03-23] MEDS: ALPRAZolam 0.5 MG TAB PO SCH ×2 (09:56→22:15)
[2022-03-23] MEDS: DAKINS HALF STR 0.25% (NaHypochlorite) 473 ML TOPICAL SOL TOP SCH (09:56)
[2022-03-23] MEDS: SODIUM CHLOR 0.9% PF (SALINE LOCK) 10ML VIAL/SYR IV SCH ×2 (09:57→21:50)
[2022-03-23] MEDS: CHOLESTYRAMINE 4 GM POWDER GT SCH ×2 (11:00→11:12)
[2022-03-23] MEDS: Jevity 1.2 Cal/Fiber 1 Liter PEG SCH (11:54)
[2022-03-23] MEDS ORDERED: POTASSIUM EFFERVESENT TAB 25 MEQ GT ONE (15:00)
[2022-03-23] MEDS: GENTAMICIN SULFATE 320 MG in D5W 5% 100 ML IV SCH (18:00)
[2022-03-23] MEDS: ATORVASTATIN 20 MG TAB PO SCH (22:15)
[2022-03-24] VITALS (21 sets, daily range): BP systolic 93–135; BP diastolic 62–90
[2022-03-24] MEDS: CEFTAZIDIME-AVIBACTAM 2.5gm in D5W 100 ML IV SCH ×3 (04:00→20:20)
[2022-03-24] MEDS: MIDODRINE HCL 10 MG TAB PO SCH ×3 (05:05→18:03)
[2022-03-24] MEDS: MORPHINE SULFATE INJ 2 MG/ml SYRG IV PRN ×4 (05:05→22:18)
[2022-03-24] MEDS: IPRATROPIUM BROM 0.5 MG/2.5ML INH SOL NEB SCH ×3 (06:07→18:31)
[2022-03-24] MEDS: ALBUTEROL SULF 2.5 MG/0.5ML(0.5%) NEB SOLN NEB SCH ×3 (06:07→18:31)
[2022-03-24 09:20] LABS: Albumin 1.4 g/dL (3.4-5.0); BUN/Creatinine Ratio 24.5; Potassium 4.4 mmol/L (3.5-5.1)
[2022-03-24 09:23] LABS: Bilirubin, Total 0.3 mg/dL (0.2-1.0); Total Protein 5.9 g/dL (6.4-8.2)
[2022-03-24] MEDS: ALPRAZolam 0.5 MG TAB PO SCH ×2 (09:59→22:14)
[2022-03-24] MEDS: ASPirin 81 mg TAB PO SCH (10:01)
[2022-03-24] MEDS: SODIUM CHLOR 0.9% PF (SALINE LOCK) 10ML VIAL/SYR IV SCH ×2 (10:06→22:13)
[2022-03-24] MEDS: MUPIROCIN 2% OINT 15gm or 22gm TOP SCH ×2 (10:07→22:15)
[2022-03-24] MEDS: DAKINS HALF STR 0.25% (NaHypochlorite) 473 ML TOPICAL SOL TOP SCH (10:07)
[2022-03-24] MEDS: CHOLESTYRAMINE 4 GM POWDER GT SCH (11:41)
[2022-03-24] MEDS: GENTAMICIN SULFATE 320 MG in D5W 5% 100 ML IV SCH (18:03)
[2022-03-24] MEDS: HYDROcodone-ACET 5/325MG TAB PO PRN (18:04)
[2022-03-24] MEDS: FREE WATER GT SCH (18:05)
[2022-03-24] MEDS: ATORVASTATIN 20 MG TAB PO SCH (22:14)
[2022-03-25] VITALS (22 sets, daily range): BP systolic 82–138; BP diastolic 61–94
[2022-03-25] MEDS: FREE WATER GT SCH ×4 (00:05→18:00)
[2022-03-25] MEDS: IPRATROPIUM BROM 0.5 MG/2.5ML INH SOL NEB SCH ×4 (00:10→18:19)
[2022-03-25] MEDS: ALBUTEROL SULF 2.5 MG/0.5ML(0.5%) NEB SOLN NEB SCH ×4 (00:10→18:19)
[2022-03-25] MEDS: CEFTAZIDIME-AVIBACTAM 2.5gm in D5W 100 ML IV SCH ×3 (03:56→20:29)
[2022-03-25 05:09] LABS: Basophils # (auto) 0.1 10 ^3/uL (0-0.2); Eosinophils # (auto) 0.2 10 ^3/uL (0-0.8); Eosinophils % (auto) 1.5 % (0.0-7.0); Hematocrit 26.4 % (41.0-53.0); Hemoglobin 8.2 g/dL (13.5-17.5); Lymphocytes # (auto) 1.2 10 ^3/uL (0.4-5.4); Mean Corpuscular Volume 89.1 fL (80.0-100.0); Monocytes # (auto) 1.3 10 ^3/uL (0-1.3)
[2022-03-25 05:11] LABS: Basophils % (auto) 0.6 % (0.0-2.0); Lymphocytes % (auto) 10.9 % (10.0-50.0); Mean Corpuscular Hemoglobin 27.7 pg (28.0-32.0); Mean Corpuscular Hgb Conc. 31.1 g/dL (32.0-36.0); Monocytes % (auto) 12.5 % (0.0-12.0); Neutrophils % (auto) 74.5 % (37.0-80.0); Red Blood Cells 2.96 10^6/uL (4.5-5.90); Red Cell Distribution Width 19.1 % (11.8-14.3); White Blood Cell 10.7 10^3/uL (4.4-10.8)
[2022-03-25 05:24] LABS: Albumin 1.4 g/dL (3.4-5.0); Calcium 7.6 mg/dL (8.5-10.1); Potassium 4.2 mmol/L (3.5-5.1)
[2022-03-25 05:28] LABS: Bilirubin, Total 0.2 mg/dL (0.2-1.0)
[2022-03-25] MEDS: MIDODRINE HCL 10 MG TAB PO SCH ×3 (05:32→18:00)
[2022-03-25] MEDS: ASPirin 81 mg TAB PO SCH (10:00)
[2022-03-25] MEDS: SODIUM CHLOR 0.9% PF (SALINE LOCK) 10ML VIAL/SYR IV SCH ×2 (10:00→22:10)
[2022-03-25] MEDS: MUPIROCIN 2% OINT 15gm or 22gm TOP SCH ×2 (10:00→22:10)
[2022-03-25] MEDS: DAKINS HALF STR 0.25% (NaHypochlorite) 473 ML TOPICAL SOL TOP SCH (10:00)
[2022-03-25] MEDS: ALPRAZolam 0.5 MG TAB PO SCH ×2 (10:00→21:59)
[2022-03-25] MEDS: CHOLESTYRAMINE 4 GM POWDER GT SCH (11:00)
[2022-03-25] MEDS: GENTAMICIN SULFATE 320 MG in D5W 5% 100 ML IV SCH (18:11)
[2022-03-25] MEDS: fentaNYL 25MCG/HR 25 MCG/HR PAT TD SCH (20:31)
[2022-03-25] MEDS: ATORVASTATIN 20 MG TAB PO SCH (21:59)
[2022-03-26] VITALS (21 sets, daily range): BP systolic 72–124; BP diastolic 50–94
[2022-03-26] MEDS: ALBUTEROL SULF 2.5 MG/0.5ML(0.5%) NEB SOLN NEB SCH ×4 (00:08→18:35)
[2022-03-26] MEDS: IPRATROPIUM BROM 0.5 MG/2.5ML INH SOL NEB SCH ×4 (00:08→18:35)
[2022-03-26] MEDS: HYDROcodone-ACET 5/325MG TAB PO PRN ×4 (00:20→19:57)
[2022-03-26] MEDS: FREE WATER GT SCH ×4 (00:25→17:42)
[2022-03-26] MEDS: MIDODRINE HCL 10 MG TAB PO SCH ×3 (06:50→17:42)
[2022-03-26] MEDS: MUPIROCIN 2% OINT 15gm or 22gm TOP SCH ×2 (10:00→22:01)
[2022-03-26] MEDS: ALPRAZolam 0.5 MG TAB PO SCH ×2 (10:00→22:00)
[2022-03-26] MEDS: ASPirin 81 mg TAB PO SCH (10:00)
[2022-03-26] MEDS: DAKINS HALF STR 0.25% (NaHypochlorite) 473 ML TOPICAL SOL TOP SCH (10:00)
[2022-03-26] MEDS: SODIUM CHLOR 0.9% PF (SALINE LOCK) 10ML VIAL/SYR IV SCH ×2 (10:00→22:01)
[2022-03-26] MEDS: CHOLESTYRAMINE 4 GM POWDER GT SCH (11:00)
[2022-03-26] MEDS: ATORVASTATIN 20 MG TAB PO SCH (22:01)
[2022-03-26] MEDS: LORazepam 2MG/ML-1ML VIAL IV PRN (22:01)
[2022-03-27] VITALS (11 sets, daily range): BP systolic 76–119; BP diastolic 46–79
[2022-03-27] MEDS: ALBUTEROL SULF 2.5 MG/0.5ML(0.5%) NEB SOLN NEB SCH ×5 (00:21→23:56)
[2022-03-27] MEDS: IPRATROPIUM BROM 0.5 MG/2.5ML INH SOL NEB SCH ×5 (00:21→23:56)
[2022-03-27] MEDS: FREE WATER GT SCH ×2 (05:47)
[2022-03-27] MEDS: HYDROcodone-ACET 5/325MG TAB PO PRN ×2 (05:47→12:41)
[2022-03-27] MEDS: DAKINS HALF STR 0.25% (NaHypochlorite) 473 ML TOPICAL SOL TOP SCH (06:00)
[2022-03-27] MEDS: MIDODRINE HCL 10 MG TAB PO SCH (06:00)
[2022-03-27] MEDS: ASPirin 81 mg TAB PO SCH (12:40)
[2022-03-27] MEDS: ALPRAZolam 0.5 MG TAB PO SCH ×2 (12:40→21:24)
[2022-03-27] MEDS: MUPIROCIN 2% OINT 15gm or 22gm TOP SCH ×2 (15:00→21:25)
[2022-03-27] MEDS: ATORVASTATIN 20 MG TAB PO SCH (21:23)
[2022-03-27] MEDS: SODIUM CHLOR 0.9% PF (SALINE LOCK) 10ML VIAL/SYR IV SCH (21:25)
[2022-03-28] VITALS (15 sets, daily range): BP systolic 92–126; BP diastolic 63–85
[2022-03-28] MEDS: FREE WATER GT SCH ×4 (06:00→20:02)
[2022-03-28] MEDS: ALBUTEROL SULF 2.5 MG/0.5ML(0.5%) NEB SOLN NEB SCH ×4 (06:16→23:54)
[2022-03-28] MEDS: IPRATROPIUM BROM 0.5 MG/2.5ML INH SOL NEB SCH ×4 (06:16→23:54)
[2022-03-28] MEDS: HYDROcodone-ACET 5/325MG TAB PO PRN (07:10)
[2022-03-28] MEDS: MIDODRINE HCL 10 MG TAB PO SCH ×5 (07:11→20:01)
[2022-03-28] MEDS: ASPirin 81 mg TAB PO SCH (09:46)
[2022-03-28] MEDS: ALPRAZolam 0.5 MG TAB PO SCH ×2 (09:46→21:55)
[2022-03-28] MEDS: SODIUM CHLOR 0.9% PF (SALINE LOCK) 10ML VIAL/SYR IV SCH ×2 (09:50→21:56)
[2022-03-28] MEDS: MUPIROCIN 2% OINT 15gm or 22gm TOP SCH ×2 (09:51→21:55)
[2022-03-28] MEDS: DAKINS HALF STR 0.25% (NaHypochlorite) 473 ML TOPICAL SOL TOP SCH (09:51)
[2022-03-28] MEDS: CHOLESTYRAMINE 4 GM POWDER GT SCH ×2 (19:59→20:02)
[2022-03-28] MEDS: ATORVASTATIN 20 MG TAB PO SCH (21:55)
[2022-03-28] MEDS: fentaNYL 25MCG/HR 25 MCG/HR PAT TD SCH (22:03)
[2022-03-29 05:04] VITALS: BP 110/89
[2022-03-29] MEDS: FREE WATER GT SCH ×5 (05:05→23:54)
[2022-03-29] MEDS: SODIUM CHLOR 0.9% PF (SALINE LOCK) 10ML VIAL/SYR IV SCH ×2 (05:38→21:15)
[2022-03-29] MEDS: MIDODRINE HCL 10 MG TAB PO SCH ×3 (05:39→18:00)
[2022-03-29] MEDS: ALBUTEROL SULF 2.5 MG/0.5ML(0.5%) NEB SOLN NEB SCH ×4 (06:16→23:58)
[2022-03-29] MEDS: IPRATROPIUM BROM 0.5 MG/2.5ML INH SOL NEB SCH ×4 (06:16→23:58)
[2022-03-29 09:00] VITALS: BP 94/61
[2022-03-29 11:04] LABS: Basophils # (auto) 0 10 ^3/uL (0-0.2); Basophils % (auto) 0.3 % (0.0-2.0); Eosinophils # (auto) 0.2 10 ^3/uL (0-0.8); Eosinophils % (auto) 1.4 % (0.0-7.0); Hematocrit 27.6 % (41.0-53.0); Hemoglobin 8.6 g/dL (13.5-17.5); Lymphocytes % (auto) 8.7 % (10.0-50.0); Mean Corpuscular Hemoglobin 27.5 pg (28.0-32.0); Mean Corpuscular Volume 88.9 fL (80.0-100.0); Monocytes # (auto) 1.2 10 ^3/uL (0-1.3); Monocytes % (auto) 10.6 % (0.0-12.0); Neutrophils # (auto) 8.8 10 ^3/uL (1.6-8.6); Nucleated Red Blood Cells % 0.1 %; Red Blood Cells 3.11 10^6/uL (4.5-5.90); Red Cell Distribution Width 18.8 % (11.8-14.3); White Blood Cell 11.1 10^3/uL (4.4-10.8)
[2022-03-29 11:27] LABS: Calcium 7.5 mg/dL (8.5-10.1); Potassium 3.7 mmol/L (3.5-5.1)
[2022-03-29 11:29] LABS: BUN/Creatinine Ratio 56.3
[2022-03-29] MEDS: ASPirin 81 mg TAB PO SCH (11:36)
[2022-03-29] MEDS: ALPRAZolam 0.5 MG TAB PO SCH ×2 (11:37→21:14)
[2022-03-29 13:00] VITALS: BP 91/58
[2022-03-29 17:00] VITALS: BP 138/82
[2022-03-29] MEDS: DAKINS HALF STR 0.25% (NaHypochlorite) 473 ML TOPICAL SOL TOP SCH (19:00)
[2022-03-29] MEDS: MUPIROCIN 2% OINT 15gm or 22gm TOP SCH ×2 (19:51→21:15)
[2022-03-29] MEDS: CHOLESTYRAMINE 4 GM POWDER GT SCH (19:54)
[2022-03-29 20:25] VITALS: BP 138/82
[2022-03-29] MEDS: HYDROcodone-ACET 5/325MG TAB PO PRN (21:14)
[2022-03-29] MEDS: ATORVASTATIN 20 MG TAB PO SCH (21:15)
[2022-03-29 21:42] VITALS: BP 119/75
[2022-03-29] MEDS: Jevity 1.2 Cal/Fiber 1 Liter PEG SCH (23:17)
[2022-03-30 04:02] VITALS: BP 103/58
[2022-03-30 05:47] LABS: Basophils # (auto) 0 10 ^3/uL (0-0.2); Basophils % (auto) 0.3 % (0.0-2.0); Eosinophils # (auto) 0.1 10 ^3/uL (0-0.8); Eosinophils % (auto) 0.9 % (0.0-7.0); Hemoglobin 7.9 g/dL (13.5-17.5); Neutrophils # (auto) 8.7 10 ^3/uL (1.6-8.6); Nucleated Red Blood Cells % 0.1 %
[2022-03-30 05:51] LABS: Hematocrit 25.3 % (41.0-53.0); Lymphocytes % (auto) 8.6 % (10.0-50.0); Mean Corpuscular Hemoglobin 27.8 pg (28.0-32.0); Mean Corpuscular Hgb Conc. 31.2 g/dL (32.0-36.0); Mean Corpuscular Volume 89.1 fL (80.0-100.0); Monocytes # (auto) 1.6 10 ^3/uL (0-1.3); Monocytes % (auto) 13.8 % (0.0-12.0); Neutrophils % (auto) 76.4 % (37.0-80.0); Red Blood Cells 2.84 10^6/uL (4.5-5.90); Red Cell Distribution Width 19.5 % (11.8-14.3); White Blood Cell 11.4 10^3/uL (4.4-10.8)
[2022-03-30] MEDS: FREE WATER GT SCH ×3 (05:54→18:49)
[2022-03-30] MEDS: MIDODRINE HCL 10 MG TAB PO SCH ×3 (05:55→18:49)
[2022-03-30 06:05] LABS: BUN/Creatinine Ratio 42.6; Calcium 7.6 mg/dL (8.5-10.1); Magnesium 1.1 mg/dL (1.6-2.6); Potassium 3.5 mmol/L (3.5-5.1)
[2022-03-30] MEDS: ALBUTEROL SULF 2.5 MG/0.5ML(0.5%) NEB SOLN NEB SCH ×4 (06:54→23:53)
[2022-03-30] MEDS: IPRATROPIUM BROM 0.5 MG/2.5ML INH SOL NEB SCH ×4 (06:55→23:53)
[2022-03-30 09:00] VITALS: BP 103/58
[2022-03-30] MEDS: MUPIROCIN 2% OINT 15gm or 22gm TOP SCH ×2 (09:44→22:00)
[2022-03-30] MEDS: HYDROcodone-ACET 5/325MG TAB PO PRN ×2 (09:44→18:53)
[2022-03-30] MEDS: ASPirin 81 mg TAB PO SCH (09:45)
[2022-03-30] MEDS: SODIUM CHLOR 0.9% PF (SALINE LOCK) 10ML VIAL/SYR IV SCH ×2 (10:00→22:00)
[2022-03-30 13:00] VITALS: BP 113/82
[2022-03-30] MEDS: DAKINS HALF STR 0.25% (NaHypochlorite) 473 ML TOPICAL SOL TOP SCH (14:30)
[2022-03-30] MEDS: ALPRAZolam 0.5 MG TAB PO SCH ×2 (14:30→22:00)
[2022-03-30] MEDS: MAGNESIUM SULFATE 1GM/100ML 100 ML IV SCH ×3 (15:32→19:30)
[2022-03-30 17:00] VITALS: BP 113/52
[2022-03-30] MEDS: CHOLESTYRAMINE 4 GM POWDER GT SCH (18:49)
[2022-03-30 21:30] VITALS: BP 107/77
[2022-03-30] MEDS: ATORVASTATIN 20 MG TAB PO SCH (22:00)
[2022-03-30] MEDS: Pro-Stat SF 30ml Vanilla GT SCH (22:00)
[2022-03-30] MEDS: MAGNESIUM OXIDE 400 MG TAB PO SCH (22:00)
[2022-03-31] MEDS: FREE WATER GT SCH ×4 (00:22→18:00)
[2022-03-31 04:33] VITALS: BP 121/90
[2022-03-31] MEDS: ALBUTEROL SULF 2.5 MG/0.5ML(0.5%) NEB SOLN NEB SCH ×3 (05:39→18:10)
[2022-03-31] MEDS: IPRATROPIUM BROM 0.5 MG/2.5ML INH SOL NEB SCH ×3 (05:39→18:10)
[2022-03-31] MEDS: MIDODRINE HCL 10 MG TAB PO SCH ×3 (05:54→18:00)
[2022-03-31 09:00] VITALS: BP 126/81
[2022-03-31] MEDS: ASPirin 81 mg TAB PO SCH (10:00)
[2022-03-31] MEDS: MUPIROCIN 2% OINT 15gm or 22gm TOP SCH ×2 (10:00→22:24)
[2022-03-31] MEDS: ALPRAZolam 0.5 MG TAB PO SCH ×2 (10:00→22:24)
[2022-03-31] MEDS: DAKINS HALF STR 0.25% (NaHypochlorite) 473 ML TOPICAL SOL TOP SCH (10:00)
[2022-03-31] MEDS: Pro-Stat SF 30ml Vanilla GT SCH ×2 (10:00→22:00)
[2022-03-31] MEDS: MAGNESIUM OXIDE 400 MG TAB PO SCH ×2 (10:00→22:23)
[2022-03-31] MEDS: SODIUM CHLOR 0.9% PF (SALINE LOCK) 10ML VIAL/SYR IV SCH ×2 (10:00→22:23)
[2022-03-31] MEDS: CHOLESTYRAMINE 4 GM POWDER GT SCH (11:19)
[2022-03-31 14:00] VITALS: BP 104/77
[2022-03-31 16:52] VITALS: BP 140/73
[2022-03-31] MEDS: fentaNYL 25MCG/HR 25 MCG/HR PAT TD SCH (19:50)
[2022-03-31] MEDS: ATORVASTATIN 20 MG TAB PO SCH (22:23)
[2022-04-01] MEDS: FREE WATER GT SCH ×5 (00:28→23:02)
[2022-04-01] MEDS: ALBUTEROL SULF 2.5 MG/0.5ML(0.5%) NEB SOLN NEB SCH ×4 (00:32→18:46)
[2022-04-01] MEDS: IPRATROPIUM BROM 0.5 MG/2.5ML INH SOL NEB SCH ×4 (00:32→18:45)
[2022-04-01 05:00] VITALS: BP 111/75
[2022-04-01] MEDS: MIDODRINE HCL 10 MG TAB PO SCH ×2 (06:17→11:52)
[2022-04-01 08:49] VITALS: BP 134/79
[2022-04-01] MEDS: ASPirin 81 mg TAB PO SCH (09:42)
[2022-04-01] MEDS: SODIUM CHLOR 0.9% PF (SALINE LOCK) 10ML VIAL/SYR IV SCH ×2 (09:42→23:03)
[2022-04-01] MEDS: Pro-Stat SF 30ml Vanilla GT SCH ×2 (09:42→22:00)
[2022-04-01] MEDS: MAGNESIUM OXIDE 400 MG TAB PO SCH (09:42)
[2022-04-01] MEDS: ALPRAZolam 0.5 MG TAB PO SCH (09:42)
[2022-04-01] MEDS: DAKINS HALF STR 0.25% (NaHypochlorite) 473 ML TOPICAL SOL TOP SCH (10:00)
[2022-04-01] MEDS: HYDROcodone-ACET 5/325MG TAB PO PRN (10:18)
[2022-04-01] MEDS: MUPIROCIN 2% OINT 15gm or 22gm TOP SCH ×2 (10:18→23:01)
[2022-04-01] MEDS: CHOLESTYRAMINE 4 GM POWDER GT SCH (11:00)
[2022-04-01 13:00] VITALS: BP 101/66
[2022-04-01] MEDS: MIDODRINE HCL 10 MG TAB GT SCH ×2 (14:30→17:40)
[2022-04-01] MEDS ORDERED: HYDROcodone-ACET 5/325MG TAB GT PRN (14:30)
[2022-04-01 17:00] VITALS: BP 101/67
[2022-04-01 21:29] VITALS: BP 101/67
[2022-04-01 22:00] VITALS: BP 91/64
[2022-04-01] MEDS: ATORVASTATIN 20 MG TAB GT SCH (23:00)
[2022-04-01] MEDS: ALPRAZolam 0.5 MG TAB GT SCH (23:00)
[2022-04-01] MEDS: MAGNESIUM OXIDE 400 MG TAB GT SCH (23:01)
[2022-04-02 05:00] VITALS: BP 143/86
[2022-04-02] MEDS: MIDODRINE HCL 10 MG TAB GT SCH ×3 (06:30→18:01)
[2022-04-02] MEDS: HYDROcodone-ACET 10/325MG TAB GT PRN ×3 (06:31→23:37)
[2022-04-02] MEDS: FREE WATER GT SCH ×3 (06:31→18:28)
[2022-04-02] MEDS: IPRATROPIUM BROM 0.5 MG/2.5ML INH SOL NEB SCH ×4 (07:12→17:58)
[2022-04-02] MEDS: ALBUTEROL SULF 2.5 MG/0.5ML(0.5%) NEB SOLN NEB SCH ×4 (07:12→17:58)
[2022-04-02] MEDS: ACETAMINOPHEN 325 MG TAB PO PRN (08:30)
[2022-04-02 09:00] VITALS: BP 81/46
[2022-04-02] MEDS: MAGNESIUM OXIDE 400 MG TAB GT SCH ×2 (09:58→21:52)
[2022-04-02] MEDS: CHOLESTYRAMINE 4 GM POWDER GT SCH (09:58)
[2022-04-02] MEDS: ALPRAZolam 0.5 MG TAB GT SCH ×2 (09:58→21:52)
[2022-04-02] MEDS: ASPirin 81 mg TAB GT SCH (09:59)
[2022-04-02] MEDS: Pro-Stat SF 30ml Vanilla GT SCH ×2 (10:00→21:54)
[2022-04-02] MEDS: DAKINS HALF STR 0.25% (NaHypochlorite) 473 ML TOPICAL SOL TOP SCH (10:46)
[2022-04-02] MEDS: SODIUM CHLOR 0.9% PF (SALINE LOCK) 10ML VIAL/SYR IV SCH ×2 (10:46→21:53)
[2022-04-02] MEDS: MUPIROCIN 2% OINT 15gm or 22gm TOP SCH ×2 (10:46→21:53)
[2022-04-02 13:00] VITALS: BP 113/69
[2022-04-02 17:00] VITALS: BP 100/61
[2022-04-02] MEDS: ATORVASTATIN 20 MG TAB GT SCH (21:52)
[2022-04-02 22:00] VITALS: BP 102/70
[2022-04-02] MEDS: guaiFENesin 200 MG/10 ML UD GT PRN (23:37)
[2022-04-03] MEDS: FREE WATER GT SCH ×4 (00:34→17:42)
[2022-04-03] MEDS: LORazepam 2MG/ML-1ML VIAL IV PRN ×2 (00:35→23:12)
[2022-04-03] MEDS: IPRATROPIUM BROM 0.5 MG/2.5ML INH SOL NEB SCH ×4 (01:14→19:38)
[2022-04-03] MEDS: ALBUTEROL SULF 2.5 MG/0.5ML(0.5%) NEB SOLN NEB SCH ×4 (01:14→19:38)
[2022-04-03 05:00] VITALS: BP 114/78
[2022-04-03] MEDS: MIDODRINE HCL 10 MG TAB GT SCH ×3 (05:40→17:42)
[2022-04-03 06:57] LABS: Basophils # (auto) 0 10 ^3/uL (0-0.2); Eosinophils # (auto) 0.2 10 ^3/uL (0-0.8); Eosinophils % (auto) 1.3 % (0.0-7.0); Hemoglobin 8.2 g/dL (13.5-17.5); Lymphocytes # (auto) 1.4 10 ^3/uL (0.4-5.4); Monocytes # (auto) 1.7 10 ^3/uL (0-1.3); Neutrophils # (auto) 8.4 10 ^3/uL (1.6-8.6); Nucleated Red Blood Cells % 0.1 %; White Blood Cell 11.7 10^3/uL (4.4-10.8)
[2022-04-03 06:59] LABS: Basophils % (auto) 0.3 % (0.0-2.0); Hematocrit 26.4 % (41.0-53.0); Lymphocytes % (auto) 11.9 % (10.0-50.0); Mean Corpuscular Hemoglobin 28.2 pg (28.0-32.0); Mean Corpuscular Hgb Conc. 31.1 g/dL (32.0-36.0); Mean Corpuscular Volume 90.8 fL (80.0-100.0); Monocytes % (auto) 14.4 % (0.0-12.0); Neutrophils % (auto) 72.1 % (37.0-80.0); Red Blood Cells 2.91 10^6/uL (4.5-5.90); Red Cell Distribution Width 18.8 % (11.8-14.3)
[2022-04-03 07:09] LABS: Chloride 112 mmol/L (98-107); Potassium 4.2 mmol/L (3.5-5.1); Sodium 147 mmol/L (136-145)
[2022-04-03 07:13] LABS: Albumin 1.3 g/dL (3.4-5.0); Anion Gap 9 (5-15); Blood Urea Nitrogen 22 mg/dL (7-18); Calcium 7.5 mg/dL (8.5-10.1); Carbon Dioxide 26 mmol/L (21-32); GFR African American 221 mL/min; GFR Non-African American 183 mL/min; Glucose 75 mg/dL (74-106)
[2022-04-03 07:18] LABS: Alanine Aminotransferase 9 U/L (16-61); Alkaline Phosphatase 147 U/L (45-117); Aspartate Aminotransferase 17 U/L (15-37); Bilirubin, Total 0.4 mg/dL (0.2-1.0)
[2022-04-03 09:00] VITALS: BP 108/66
[2022-04-03] MEDS: ASPirin 81 mg TAB GT SCH (10:46)
[2022-04-03] MEDS: MAGNESIUM OXIDE 400 MG TAB GT SCH ×2 (10:47→21:15)
[2022-04-03] MEDS: Pro-Stat SF 30ml Vanilla GT SCH ×2 (10:47→21:16)
[2022-04-03] MEDS: DAKINS HALF STR 0.25% (NaHypochlorite) 473 ML TOPICAL SOL TOP SCH (10:48)
[2022-04-03] MEDS: ALPRAZolam 0.5 MG TAB GT SCH ×2 (10:48→21:16)
[2022-04-03] MEDS: CHOLESTYRAMINE 4 GM POWDER GT SCH (10:48)
[2022-04-03] MEDS: MUPIROCIN 2% OINT 15gm or 22gm TOP SCH ×2 (10:48→21:16)
[2022-04-03] MEDS: SODIUM CHLOR 0.9% PF (SALINE LOCK) 10ML VIAL/SYR IV SCH ×2 (10:48→21:16)
[2022-04-03] MEDS: HYDROcodone-ACET 10/325MG TAB GT PRN (10:52)
[2022-04-03 13:00] VITALS: BP 105/71
[2022-04-03 17:00] VITALS: BP 87/61
[2022-04-03] MEDS: fentaNYL 25MCG/HR 25 MCG/HR PAT TD SCH (20:00)
[2022-04-03] MEDS: ATORVASTATIN 20 MG TAB GT SCH (21:15)
[2022-04-03 22:00] VITALS: BP 101/70
[2022-04-04] MEDS: IPRATROPIUM BROM 0.5 MG/2.5ML INH SOL NEB SCH ×4 (00:35→18:34)
[2022-04-04] MEDS: ALBUTEROL SULF 2.5 MG/0.5ML(0.5%) NEB SOLN NEB SCH ×4 (00:35→18:34)
[2022-04-04] MEDS: HYDROcodone-ACET 10/325MG TAB GT PRN ×3 (03:27→15:24)
[2022-04-04 05:00] VITALS: BP 89/70
[2022-04-04] MEDS: FREE WATER GT SCH ×5 (06:36→23:54)
[2022-04-04] MEDS: MIDODRINE HCL 10 MG TAB GT SCH ×3 (06:37→18:46)
[2022-04-04 08:18] VITALS: BP 120/67
[2022-04-04] MEDS: ASPirin 81 mg TAB GT SCH (10:32)
[2022-04-04] MEDS: MAGNESIUM OXIDE 400 MG TAB GT SCH ×2 (10:32→23:53)
[2022-04-04] MEDS: MUPIROCIN 2% OINT 15gm or 22gm TOP SCH ×2 (10:33→23:54)
[2022-04-04] MEDS: SODIUM CHLOR 0.9% PF (SALINE LOCK) 10ML VIAL/SYR IV SCH ×2 (10:33→23:54)
[2022-04-04] MEDS: ALPRAZolam 0.5 MG TAB GT SCH ×2 (10:33→23:53)
[2022-04-04] MEDS: DAKINS HALF STR 0.25% (NaHypochlorite) 473 ML TOPICAL SOL TOP SCH (10:33)
[2022-04-04] MEDS: Pro-Stat SF 30ml Vanilla GT SCH ×2 (11:52→23:53)
[2022-04-04] MEDS: CHOLESTYRAMINE 4 GM POWDER GT SCH (12:01)
[2022-04-04 13:00] VITALS: BP 121/60
[2022-04-04 17:07] VITALS: BP 90/53
[2022-04-04 19:46] VITALS: BP 90/53
[2022-04-04] MEDS: ONDANSETRON HCL 4 MG/2 ML VIAL IV PRN ×2 (20:52→23:52)
[2022-04-04] MEDS: PANTOPRAZOLE 40 MG/10 ML VIAL INJ IV SCH (21:42)
[2022-04-04] MEDS: LORazepam 2MG/ML-1ML VIAL IV PRN (21:49)
[2022-04-04 22:00] VITALS: BP 103/76
[2022-04-04] MEDS: ATORVASTATIN 20 MG TAB GT SCH (23:52)
[2022-04-04] MEDS: MEROPENEM 1GM IVPB 100 ML IV SCH (23:54)
[2022-04-05] MEDS: Jevity 1.2 Cal/Fiber 1 Liter PEG SCH (00:22)
[2022-04-05 00:24] LABS: Basophils # (auto) 0 10 ^3/uL (0-0.2); Eosinophils # (auto) 0 10 ^3/uL (0-0.8); Lymphocytes # (auto) 0.4 10 ^3/uL (0.4-5.4); Monocytes # (auto) 0.8 10 ^3/uL (0-1.3); Red Blood Cells 2.74 10^6/uL (4.5-5.90); Red Cell Distribution Width 18.5 % (11.8-14.3)
[2022-04-05] MEDS: IPRATROPIUM BROM 0.5 MG/2.5ML INH SOL NEB SCH ×4 (00:25→19:52)
[2022-04-05] MEDS: ALBUTEROL SULF 2.5 MG/0.5ML(0.5%) NEB SOLN NEB SCH ×4 (00:25→19:52)
[2022-04-05 00:40] LABS: Basophils % (auto) 0.3 % (0.0-2.0); Eosinophils % (auto) 0.1 % (0.0-7.0); Hematocrit 24.8 % (41.0-53.0); Hemoglobin 7.8 g/dL (13.5-17.5); Lymphocytes % (auto) 3.5 % (10.0-50.0); Mean Corpuscular Hemoglobin 28.5 pg (28.0-32.0); Mean Corpuscular Hgb Conc. 31.6 g/dL (32.0-36.0); Mean Corpuscular Volume 90.4 fL (80.0-100.0); Neutrophils # (auto) 11.4 10 ^3/uL (1.6-8.6); Neutrophils % (auto) 90.1 % (37.0-80.0); White Blood Cell 12.7 10^3/uL (4.4-10.8)
[2022-04-05] MEDS ORDERED: SODIUM CHLORIDE 0.9% 500 ML IV ONE (03:15)
[2022-04-05 05:00] VITALS: BP 107/71
[2022-04-05] MEDS: FREE WATER GT SCH ×3 (06:00→18:30)
[2022-04-05] MEDS: MEROPENEM 1GM IVPB 100 ML IV SCH ×4 (06:00→21:44)
[2022-04-05] MEDS: MIDODRINE HCL 10 MG TAB GT SCH ×3 (06:00→18:30)
[2022-04-05 06:19] LABS: Basophils # (auto) 0 10 ^3/uL (0-0.2); Eosinophils # (auto) 0 10 ^3/uL (0-0.8); Eosinophils % (auto) 0.3 % (0.0-7.0); Lymphocytes # (auto) 1.1 10 ^3/uL (0.4-5.4); Lymphocytes % (auto) 10.1 % (10.0-50.0); Mean Corpuscular Hemoglobin 28.4 pg (28.0-32.0); Mean Corpuscular Volume 91.2 fL (80.0-100.0); Nucleated Red Blood Cells % 0.1 %
[2022-04-05 06:21] LABS: Basophils % (auto) 0.4 % (0.0-2.0); Hematocrit 23.7 % (41.0-53.0); Hemoglobin 7.4 g/dL (13.5-17.5); Mean Corpuscular Hgb Conc. 31.1 g/dL (32.0-36.0); Monocytes # (auto) 1.4 10 ^3/uL (0-1.3); Monocytes % (auto) 12.6 % (0.0-12.0); Neutrophils # (auto) 8.3 10 ^3/uL (1.6-8.6); Neutrophils % (auto) 76.6 % (37.0-80.0); Red Cell Distribution Width 18.6 % (11.8-14.3); White Blood Cell 10.8 10^3/uL (4.4-10.8)
[2022-04-05] MEDS: ASPirin 81 mg TAB GT SCH (07:53)
[2022-04-05 08:00] VITALS: BP 105/78
[2022-04-05] MEDS: LORazepam 2MG/ML-1ML VIAL IV PRN (09:55)
[2022-04-05] MEDS: PANTOPRAZOLE 40 MG/10 ML VIAL INJ IV SCH ×2 (09:55→21:44)
[2022-04-05] MEDS: DAKINS HALF STR 0.25% (NaHypochlorite) 473 ML TOPICAL SOL TOP SCH (10:00)
[2022-04-05] MEDS: SODIUM CHLOR 0.9% PF (SALINE LOCK) 10ML VIAL/SYR IV SCH ×2 (10:00→21:45)
[2022-04-05] MEDS: ALPRAZolam 0.5 MG TAB GT SCH ×2 (10:00→21:44)
[2022-04-05] MEDS: MUPIROCIN 2% OINT 15gm or 22gm TOP SCH ×2 (10:00→21:45)
[2022-04-05] MEDS: Pro-Stat SF 30ml Vanilla GT SCH ×2 (10:00→21:44)
[2022-04-05] MEDS ORDERED: fentaNYL 25MCG/HR 25 MCG/HR PAT TD SCH (10:15)
[2022-04-05 12:00] VITALS: BP 126/88
[2022-04-05 12:30] LABS: Basophils # (auto) 0 10 ^3/uL (0-0.2); Basophils % (auto) 0.3 % (0.0-2.0); Eosinophils # (auto) 0.1 10 ^3/uL (0-0.8); Eosinophils % (auto) 0.8 % (0.0-7.0); Hematocrit 23.2 % (41.0-53.0); Hemoglobin 7.4 g/dL (13.5-17.5); Lymphocytes # (auto) 0.8 10 ^3/uL (0.4-5.4); Lymphocytes % (auto) 7.9 % (10.0-50.0); Mean Corpuscular Hgb Conc. 31.7 g/dL (32.0-36.0); Mean Corpuscular Volume 91.4 fL (80.0-100.0); Monocytes # (auto) 1.2 10 ^3/uL (0-1.3); Monocytes % (auto) 11.4 % (0.0-12.0); Neutrophils # (auto) 8.2 10 ^3/uL (1.6-8.6); Neutrophils % (auto) 79.6 % (37.0-80.0); Red Blood Cells 2.54 10^6/uL (4.5-5.90); Red Cell Distribution Width 18.6 % (11.8-14.3); White Blood Cell 10.3 10^3/uL (4.4-10.8)
[2022-04-05] MEDS: MAGNESIUM OXIDE 400 MG TAB GT SCH ×2 (13:13→21:44)
[2022-04-05] MEDS: CHOLESTYRAMINE 4 GM POWDER GT SCH (13:15)
[2022-04-05] MEDS: fentaNYL 50MCG/HR 50 MCG/HR PAT TD SCH (13:49)
[2022-04-05] MEDS: ALBUTEROL SULF 2.5 MG/0.5ML(0.5%) NEB SOLN NEB PRN (15:41)
[2022-04-05] MEDS: IPRATROPIUM BROM 0.5 MG/2.5ML INH SOL NEB PRN (15:41)
[2022-04-05 16:00] VITALS: BP 108/81
[2022-04-05 20:13] LABS: Basophils # (auto) 0 10 ^3/uL (0-0.2); Basophils % (auto) 0.2 % (0.0-2.0); Eosinophils # (auto) 0.1 10 ^3/uL (0-0.8); Eosinophils % (auto) 1.3 % (0.0-7.0); Hematocrit 23.2 % (41.0-53.0); Hemoglobin 7.3 g/dL (13.5-17.5); Lymphocytes % (auto) 9.5 % (10.0-50.0); Mean Corpuscular Hemoglobin 28.7 pg (28.0-32.0); Mean Corpuscular Hgb Conc. 31.5 g/dL (32.0-36.0); Mean Corpuscular Volume 91.4 fL (80.0-100.0); Monocytes % (auto) 10.1 % (0.0-12.0); Neutrophils # (auto) 8.1 10 ^3/uL (1.6-8.6); Neutrophils % (auto) 78.9 % (37.0-80.0); Nucleated Red Blood Cells % 0.1 %; Red Blood Cells 2.54 10^6/uL (4.5-5.90); Red Cell Distribution Width 18.8 % (11.8-14.3); White Blood Cell 10.3 10^3/uL (4.4-10.8)
[2022-04-05] MEDS: ATORVASTATIN 20 MG TAB GT SCH (21:44)
[2022-04-05] MEDS: HYDROcodone-ACET 10/325MG TAB GT PRN (21:45)
[2022-04-05 22:00] VITALS: BP 109/78
[2022-04-06] VITALS (14 sets, daily range): BP systolic 95–118; BP diastolic 52–80
[2022-04-06] MEDS: FREE WATER GT SCH ×4 (00:09→18:17)
[2022-04-06] MEDS: ALBUTEROL SULF 2.5 MG/0.5ML(0.5%) NEB SOLN NEB SCH ×4 (00:45→18:57)
[2022-04-06] MEDS: IPRATROPIUM BROM 0.5 MG/2.5ML INH SOL NEB SCH ×4 (00:45→18:57)
[2022-04-06 00:58] LABS: Basophils # (auto) 0 10 ^3/uL (0-0.2); Eosinophils # (auto) 0.2 10 ^3/uL (0-0.8); Eosinophils % (auto) 2.3 % (0.0-7.0); Mean Corpuscular Volume 92.1 fL (80.0-100.0); Monocytes # (auto) 0.9 10 ^3/uL (0-1.3)
[2022-04-06 01:01] LABS: Basophils % (auto) 0.4 % (0.0-2.0); Hematocrit 21.4 % (41.0-53.0); Lymphocytes # (auto) 1.2 10 ^3/uL (0.4-5.4); Lymphocytes % (auto) 13.9 % (10.0-50.0); Mean Corpuscular Hemoglobin 29.3 pg (28.0-32.0); Mean Corpuscular Hgb Conc. 31.8 g/dL (32.0-36.0); Monocytes % (auto) 9.9 % (0.0-12.0); Neutrophils # (auto) 6.3 10 ^3/uL (1.6-8.6); Neutrophils % (auto) 73.5 % (37.0-80.0); Red Blood Cells 2.33 10^6/uL (4.5-5.90); Red Cell Distribution Width 18.8 % (11.8-14.3); White Blood Cell 8.6 10^3/uL (4.4-10.8)
[2022-04-06 01:02] LABS: Hemoglobin 6.8 g/dL (13.5-17.5)
[2022-04-06] MEDS: LORazepam 2MG/ML-1ML VIAL IV PRN (03:03)
[2022-04-06] MEDS: MIDODRINE HCL 10 MG TAB GT SCH ×3 (05:21→18:17)
[2022-04-06] MEDS: MEROPENEM 1GM IVPB 100 ML IV SCH ×3 (05:22→22:20)
[2022-04-06 07:01] LABS: Basophils # (auto) 0 10 ^3/uL (0-0.2); Lymphocytes # (auto) 1.1 10 ^3/uL (0.4-5.4); Mean Corpuscular Volume 90.1 fL (80.0-100.0); Monocytes # (auto) 0.8 10 ^3/uL (0-1.3); Neutrophils # (auto) 5.9 10 ^3/uL (1.6-8.6)
[2022-04-06 07:04] LABS: Basophils % (auto) 0.5 % (0.0-2.0); Eosinophils # (auto) 0.3 10 ^3/uL (0-0.8); Eosinophils % (auto) 3.4 % (0.0-7.0); Hematocrit 25.6 % (41.0-53.0); Hemoglobin 8.1 g/dL (13.5-17.5); Lymphocytes % (auto) 13.4 % (10.0-50.0); Mean Corpuscular Hemoglobin 28.5 pg (28.0-32.0); Mean Corpuscular Hgb Conc. 31.7 g/dL (32.0-36.0); Monocytes % (auto) 10.3 % (0.0-12.0); Neutrophils % (auto) 72.4 % (37.0-80.0); Nucleated Red Blood Cells % 0.2 %; Red Blood Cells 2.84 10^6/uL (4.5-5.90); Red Cell Distribution Width 18.4 % (11.8-14.3); White Blood Cell 8.2 10^3/uL (4.4-10.8)
[2022-04-06] MEDS: ASPirin 81 mg TAB GT SCH (09:13)
[2022-04-06] MEDS: MAGNESIUM OXIDE 400 MG TAB GT SCH ×2 (09:15→22:16)
[2022-04-06] MEDS: SODIUM CHLOR 0.9% PF (SALINE LOCK) 10ML VIAL/SYR IV SCH ×2 (09:16→22:21)
[2022-04-06] MEDS: MUPIROCIN 2% OINT 15gm or 22gm TOP SCH (09:16)
[2022-04-06] MEDS: PANTOPRAZOLE 40 MG/10 ML VIAL INJ IV SCH ×2 (09:16→22:21)
[2022-04-06] MEDS: ALPRAZolam 0.5 MG TAB GT SCH ×2 (09:16→22:16)
[2022-04-06] MEDS: HYDROcodone-ACET 10/325MG TAB GT PRN ×3 (09:16→22:16)
[2022-04-06] MEDS: Pro-Stat SF 30ml Vanilla GT SCH ×2 (09:17→22:20)
[2022-04-06] MEDS: DAKINS HALF STR 0.25% (NaHypochlorite) 473 ML TOPICAL SOL TOP SCH (09:17)
[2022-04-06] MEDS: CHOLESTYRAMINE 4 GM POWDER GT SCH (11:30)
[2022-04-06 12:13] LABS: Basophils # (auto) 0.1 10 ^3/uL (0-0.2); Basophils % (auto) 0.7 % (0.0-2.0); Eosinophils # (auto) 0.3 10 ^3/uL (0-0.8); Eosinophils % (auto) 3.4 % (0.0-7.0); Hematocrit 26.7 % (41.0-53.0); Hemoglobin 8.5 g/dL (13.5-17.5); Lymphocytes # (auto) 0.8 10 ^3/uL (0.4-5.4); Lymphocytes % (auto) 7.8 % (10.0-50.0); Mean Corpuscular Hemoglobin 28.4 pg (28.0-32.0); Mean Corpuscular Hgb Conc. 31.7 g/dL (32.0-36.0); Mean Corpuscular Volume 89.6 fL (80.0-100.0); Monocytes # (auto) 0.8 10 ^3/uL (0-1.3); Monocytes % (auto) 8.2 % (0.0-12.0); Neutrophils # (auto) 8.1 10 ^3/uL (1.6-8.6); Neutrophils % (auto) 79.9 % (37.0-80.0); Nucleated Red Blood Cells % 0.1 %; Red Blood Cells 2.98 10^6/uL (4.5-5.90); Red Cell Distribution Width 18.2 % (11.8-14.3); White Blood Cell 10.1 10^3/uL (4.4-10.8)
[2022-04-06 18:53] LABS: Basophils # (auto) 0 10 ^3/uL (0-0.2); Basophils % (auto) 0.5 % (0.0-2.0); Eosinophils # (auto) 0.2 10 ^3/uL (0-0.8); Eosinophils % (auto) 2.5 % (0.0-7.0); Hematocrit 26.7 % (41.0-53.0); Hemoglobin 8.6 g/dL (13.5-17.5); Lymphocytes # (auto) 0.7 10 ^3/uL (0.4-5.4); Lymphocytes % (auto) 7.3 % (10.0-50.0); Mean Corpuscular Hemoglobin 28.7 pg (28.0-32.0); Mean Corpuscular Volume 89.6 fL (80.0-100.0); Monocytes # (auto) 0.9 10 ^3/uL (0-1.3); Monocytes % (auto) 9.5 % (0.0-12.0); Neutrophils # (auto) 7.9 10 ^3/uL (1.6-8.6); Neutrophils % (auto) 80.2 % (37.0-80.0); Nucleated Red Blood Cells % 0.1 %; Red Blood Cells 2.98 10^6/uL (4.5-5.90); Red Cell Distribution Width 18.1 % (11.8-14.3); White Blood Cell 9.9 10^3/uL (4.4-10.8)
[2022-04-06] MEDS: ATORVASTATIN 20 MG TAB GT SCH (22:17)
[2022-04-07] MEDS: IPRATROPIUM BROM 0.5 MG/2.5ML INH SOL NEB SCH ×4 (00:25→19:39)
[2022-04-07] MEDS: ALBUTEROL SULF 2.5 MG/0.5ML(0.5%) NEB SOLN NEB SCH ×4 (00:25→19:39)
[2022-04-07] MEDS: FREE WATER GT SCH ×4 (00:39→18:52)
[2022-04-07] MEDS: HYDROcodone-ACET 10/325MG TAB GT PRN ×3 (02:39→21:54)
[2022-04-07 05:14] VITALS: BP 122/89
[2022-04-07 06:23] LABS: Basophils # (auto) 0 10 ^3/uL (0-0.2); Basophils % (auto) 0.4 % (0.0-2.0); Eosinophils # (auto) 0.4 10 ^3/uL (0-0.8); Eosinophils % (auto) 4.6 % (0.0-7.0); Hematocrit 28.6 % (41.0-53.0); Lymphocytes % (auto) 10.9 % (10.0-50.0); Mean Corpuscular Hemoglobin 28.5 pg (28.0-32.0); Mean Corpuscular Hgb Conc. 31.5 g/dL (32.0-36.0); Mean Corpuscular Volume 90.6 fL (80.0-100.0); Monocytes % (auto) 10.5 % (0.0-12.0); Neutrophils # (auto) 6.9 10 ^3/uL (1.6-8.6); Neutrophils % (auto) 73.6 % (37.0-80.0); Nucleated Red Blood Cells % 0.1 %; Red Blood Cells 3.16 10^6/uL (4.5-5.90); Red Cell Distribution Width 18.1 % (11.8-14.3); White Blood Cell 9.3 10^3/uL (4.4-10.8)
[2022-04-07] MEDS: MIDODRINE HCL 10 MG TAB GT SCH ×3 (06:23→17:46)
[2022-04-07] MEDS: MEROPENEM 1GM IVPB 100 ML IV SCH ×3 (06:24→21:53)
[2022-04-07 07:49] LABS: BUN/Creatinine Ratio 52.1; Calcium 7.7 mg/dL (8.5-10.1); Potassium 4.3 mmol/L (3.5-5.1)
[2022-04-07 09:00] VITALS: BP 118/80
[2022-04-07] MEDS: ALPRAZolam 0.5 MG TAB GT SCH ×2 (10:22→21:53)
[2022-04-07] MEDS: PANTOPRAZOLE 40 MG/10 ML VIAL INJ IV SCH ×2 (10:22→21:53)
[2022-04-07] MEDS: SODIUM CHLOR 0.9% PF (SALINE LOCK) 10ML VIAL/SYR IV SCH ×2 (10:23→21:53)
[2022-04-07] MEDS: MAGNESIUM OXIDE 400 MG TAB GT SCH ×2 (10:23→21:52)
[2022-04-07] MEDS: Pro-Stat SF 30ml Vanilla GT SCH ×2 (10:23→22:15)
[2022-04-07] MEDS: CHOLESTYRAMINE 4 GM POWDER GT SCH (10:55)
[2022-04-07 13:00] VITALS: BP 113/78
[2022-04-07 17:00] VITALS: BP 111/75
[2022-04-07] MEDS: DAKINS HALF STR 0.25% (NaHypochlorite) 473 ML TOPICAL SOL TOP SCH (17:49)
[2022-04-07] MEDS: ATORVASTATIN 20 MG TAB GT SCH (21:52)
[2022-04-07 22:00] VITALS: BP 111/76
[2022-04-07 23:23] VITALS: BP 111/75
[2022-04-08] MEDS: FREE WATER GT SCH ×4 (00:15→17:32)
[2022-04-08] MEDS: ALBUTEROL SULF 2.5 MG/0.5ML(0.5%) NEB SOLN NEB SCH ×4 (00:48→18:18)
[2022-04-08] MEDS: IPRATROPIUM BROM 0.5 MG/2.5ML INH SOL NEB SCH ×4 (00:48→18:18)
[2022-04-08] MEDS: HYDROcodone-ACET 10/325MG TAB GT PRN ×3 (02:37→21:48)
[2022-04-08 05:00] VITALS: BP 110/70
[2022-04-08] MEDS: MIDODRINE HCL 10 MG TAB GT SCH ×3 (05:59→17:34)
[2022-04-08] MEDS: MEROPENEM 1GM IVPB 100 ML IV SCH ×3 (06:00→21:47)
[2022-04-08 09:00] VITALS: BP 117/80
[2022-04-08] MEDS: MAGNESIUM OXIDE 400 MG TAB GT SCH ×2 (09:21→21:46)
[2022-04-08] MEDS: Pro-Stat SF 30ml Vanilla GT SCH ×2 (09:22→22:13)
[2022-04-08] MEDS: PANTOPRAZOLE 40 MG/10 ML VIAL INJ IV SCH ×2 (09:22→21:47)
[2022-04-08] MEDS: ALPRAZolam 0.5 MG TAB GT SCH ×2 (09:22→21:47)
[2022-04-08] MEDS: CHOLESTYRAMINE 4 GM POWDER GT SCH (09:23)
[2022-04-08] MEDS: SODIUM CHLOR 0.9% PF (SALINE LOCK) 10ML VIAL/SYR IV SCH ×2 (09:23→21:47)
[2022-04-08] MEDS: DAKINS HALF STR 0.25% (NaHypochlorite) 473 ML TOPICAL SOL TOP SCH (09:23)
[2022-04-08] MEDS: fentaNYL 50MCG/HR 50 MCG/HR PAT TD SCH (13:13)
[2022-04-08] MEDS: ATORVASTATIN 20 MG TAB GT SCH (21:46)
[2022-04-08 22:00] VITALS: BP 96/72
[2022-04-09] MEDS: ALBUTEROL SULF 2.5 MG/0.5ML(0.5%) NEB SOLN NEB SCH ×4 (00:21→19:46)
[2022-04-09] MEDS: IPRATROPIUM BROM 0.5 MG/2.5ML INH SOL NEB SCH ×4 (00:21→19:46)
[2022-04-09] MEDS: FREE WATER GT SCH ×5 (01:15→23:39)
[2022-04-09 05:00] VITALS: BP 85/61
[2022-04-09] MEDS: MEROPENEM 1GM IVPB 100 ML IV SCH ×3 (05:01→22:18)
[2022-04-09] MEDS: MIDODRINE HCL 10 MG TAB GT SCH ×3 (05:01→17:33)
[2022-04-09] MEDS: HYDROcodone-ACET 10/325MG TAB GT PRN ×2 (05:49→12:41)
[2022-04-09 09:00] VITALS: BP 104/56
[2022-04-09] MEDS: Pro-Stat SF 30ml Vanilla GT SCH ×2 (10:01→22:26)
[2022-04-09] MEDS: SODIUM CHLOR 0.9% PF (SALINE LOCK) 10ML VIAL/SYR IV SCH ×2 (10:01→22:14)
[2022-04-09] MEDS: PANTOPRAZOLE 40 MG/10 ML VIAL INJ IV SCH ×2 (10:01→22:15)
[2022-04-09] MEDS: MAGNESIUM OXIDE 400 MG TAB GT SCH ×2 (10:01→22:18)
[2022-04-09] MEDS: ALPRAZolam 0.5 MG TAB GT SCH ×2 (10:01→22:18)
[2022-04-09] MEDS: DAKINS HALF STR 0.25% (NaHypochlorite) 473 ML TOPICAL SOL TOP SCH (10:02)
[2022-04-09] MEDS: CHOLESTYRAMINE 4 GM POWDER GT SCH (10:02)
[2022-04-09 12:57] VITALS: BP 95/60
[2022-04-09 22:00] VITALS: BP 97/63
[2022-04-09] MEDS: ATORVASTATIN 20 MG TAB GT SCH (22:19)
[2022-04-10] MEDS: ALBUTEROL SULF 2.5 MG/0.5ML(0.5%) NEB SOLN NEB SCH ×5 (00:28→23:37)
[2022-04-10] MEDS: IPRATROPIUM BROM 0.5 MG/2.5ML INH SOL NEB SCH ×5 (00:28→23:37)
[2022-04-10] MEDS: HYDROcodone-ACET 10/325MG TAB GT PRN ×4 (01:49→23:48)
[2022-04-10] MEDS: LORazepam 2MG/ML-1ML VIAL IV PRN ×2 (04:40→15:09)
[2022-04-10 05:00] VITALS: BP 103/70
[2022-04-10] MEDS: FREE WATER GT SCH ×4 (05:12→23:35)
[2022-04-10] MEDS: MEROPENEM 1GM IVPB 100 ML IV SCH ×3 (05:13→22:08)
[2022-04-10] MEDS: MIDODRINE HCL 10 MG TAB GT SCH ×3 (05:13→18:00)
[2022-04-10 06:05] LABS: Basophils # (auto) 0 10 ^3/uL (0-0.2); Basophils % (auto) 0.3 % (0.0-2.0); Calcium 7.6 mg/dL (8.5-10.1); Eosinophils # (auto) 0.3 10 ^3/uL (0-0.8); Eosinophils % (auto) 3.6 % (0.0-7.0); Hematocrit 25.8 % (41.0-53.0); Hemoglobin 8.3 g/dL (13.5-17.5); Lymphocytes % (auto) 11.6 % (10.0-50.0); Mean Corpuscular Hemoglobin 28.9 pg (28.0-32.0); Mean Corpuscular Hgb Conc. 32.2 g/dL (32.0-36.0); Mean Corpuscular Volume 89.7 fL (80.0-100.0); Monocytes # (auto) 0.9 10 ^3/uL (0-1.3); Monocytes % (auto) 10.6 % (0.0-12.0); Neutrophils # (auto) 6.3 10 ^3/uL (1.6-8.6); Neutrophils % (auto) 73.9 % (37.0-80.0); Nucleated Red Blood Cells % 0.1 %; Potassium 3.7 mmol/L (3.5-5.1); Red Blood Cells 2.87 10^6/uL (4.5-5.90); Red Cell Distribution Width 17.3 % (11.8-14.3); White Blood Cell 8.5 10^3/uL (4.4-10.8)
[2022-04-10 09:00] VITALS: BP 114/75
[2022-04-10] MEDS: DAKINS HALF STR 0.25% (NaHypochlorite) 473 ML TOPICAL SOL TOP SCH (10:00)
[2022-04-10] MEDS: CHOLESTYRAMINE 4 GM POWDER GT SCH (10:35)
[2022-04-10] MEDS: ALPRAZolam 0.5 MG TAB GT SCH ×2 (10:35→22:06)
[2022-04-10] MEDS: PANTOPRAZOLE 40 MG/10 ML VIAL INJ IV SCH ×2 (10:35→22:07)
[2022-04-10] MEDS: MAGNESIUM OXIDE 400 MG TAB GT SCH ×2 (10:35→22:06)
[2022-04-10 13:00] VITALS: BP 103/67
[2022-04-10] MEDS: Pro-Stat SF 30ml Vanilla GT SCH ×2 (13:11→22:07)
[2022-04-10] MEDS: SODIUM CHLOR 0.9% PF (SALINE LOCK) 10ML VIAL/SYR IV SCH ×2 (13:11→22:07)
[2022-04-10] MEDS: ACETAMINOPHEN 325 MG TAB PO PRN (13:14)
[2022-04-10 18:00] VITALS: BP 109/76
[2022-04-10 22:00] VITALS: BP 131/88
[2022-04-10] MEDS: ATORVASTATIN 20 MG TAB GT SCH (22:07)
[2022-04-10 22:22] VITALS: BP 118/69
[2022-04-11] MEDS: LORazepam 2MG/ML-1ML VIAL IV PRN (01:12)
[2022-04-11 05:00] VITALS: BP 142/78
[2022-04-11] MEDS: FREE WATER GT SCH ×4 (05:27→23:17)
[2022-04-11] MEDS: MIDODRINE HCL 10 MG TAB GT SCH ×3 (05:28→17:58)
[2022-04-11] MEDS: MEROPENEM 1GM IVPB 100 ML IV SCH ×3 (05:28→22:17)
[2022-04-11] MEDS: HYDROcodone-ACET 10/325MG TAB GT PRN ×3 (05:29→22:17)
[2022-04-11] MEDS: ALBUTEROL SULF 2.5 MG/0.5ML(0.5%) NEB SOLN NEB SCH ×3 (06:56→18:08)
[2022-04-11] MEDS: IPRATROPIUM BROM 0.5 MG/2.5ML INH SOL NEB SCH ×3 (06:56→18:07)
[2022-04-11] MEDS: PANTOPRAZOLE 40 MG/10 ML VIAL INJ IV SCH ×2 (10:21→22:15)
[2022-04-11] MEDS: MAGNESIUM OXIDE 400 MG TAB GT SCH ×2 (10:21→22:16)
[2022-04-11] MEDS: ALPRAZolam 0.5 MG TAB GT SCH ×2 (10:21→22:16)
[2022-04-11] MEDS: SODIUM CHLOR 0.9% PF (SALINE LOCK) 10ML VIAL/SYR IV SCH ×2 (10:24→22:15)
[2022-04-11] MEDS: Pro-Stat SF 30ml Vanilla GT SCH ×2 (10:24→22:17)
[2022-04-11] MEDS: CHOLESTYRAMINE 4 GM POWDER GT SCH (11:58)
[2022-04-11 13:00] VITALS: BP 116/71
[2022-04-11] MEDS: fentaNYL 50MCG/HR 50 MCG/HR PAT TD SCH (13:26)
[2022-04-11] MEDS: DAKINS HALF STR 0.25% (NaHypochlorite) 473 ML TOPICAL SOL TOP SCH (13:36)
[2022-04-11 17:00] VITALS: BP 105/86
[2022-04-11 22:00] VITALS: BP 110/70
[2022-04-11] MEDS: guaiFENesin 200 MG/10 ML UD GT PRN (22:15)
[2022-04-11] MEDS: ATORVASTATIN 20 MG TAB GT SCH (22:16)
[2022-04-12] MEDS: ALBUTEROL SULF 2.5 MG/0.5ML(0.5%) NEB SOLN NEB SCH ×5 (00:10→23:51)
[2022-04-12] MEDS: IPRATROPIUM BROM 0.5 MG/2.5ML INH SOL NEB SCH ×5 (00:11→23:50)
[2022-04-12] MEDS: LORazepam 2MG/ML-1ML VIAL IV PRN ×2 (03:46→20:53)
[2022-04-12 04:38] VITALS: BP 107/80
[2022-04-12] MEDS: ALBUTEROL SULF 2.5 MG/0.5ML(0.5%) NEB SOLN NEB PRN (04:47)
[2022-04-12] MEDS: IPRATROPIUM BROM 0.5 MG/2.5ML INH SOL NEB PRN (04:47)
[2022-04-12] MEDS: FREE WATER GT SCH ×3 (05:01→18:12)
[2022-04-12] MEDS: MEROPENEM 1GM IVPB 100 ML IV SCH ×3 (05:01→23:09)
[2022-04-12] MEDS: MIDODRINE HCL 10 MG TAB GT SCH ×3 (05:01→17:10)
[2022-04-12] MEDS: ALPRAZolam 0.5 MG TAB GT SCH ×2 (08:15→23:07)
[2022-04-12] MEDS: MAGNESIUM OXIDE 400 MG TAB GT SCH ×2 (08:15→23:08)
[2022-04-12] MEDS: PANTOPRAZOLE 40 MG/10 ML VIAL INJ IV SCH ×2 (08:15→23:07)
[2022-04-12] MEDS: CHOLESTYRAMINE 4 GM POWDER GT SCH (08:15)
[2022-04-12] MEDS: SODIUM CHLOR 0.9% PF (SALINE LOCK) 10ML VIAL/SYR IV SCH ×2 (08:15→23:43)
[2022-04-12 09:00] VITALS: BP 96/57
[2022-04-12] MEDS: DAKINS HALF STR 0.25% (NaHypochlorite) 473 ML TOPICAL SOL TOP SCH (10:00)
[2022-04-12] MEDS: Pro-Stat SF 30ml Vanilla GT SCH (11:00)
[2022-04-12] MEDS: HYDROcodone-ACET 10/325MG TAB GT PRN ×4 (11:12→20:52)
[2022-04-12 12:59] VITALS: BP 96/59
[2022-04-12] MEDS ORDERED: DAKINS QUARTER STR 0.125% (NaHypochlorite) 473 ML TOPICAL SOL TOP ONE (15:15)
[2022-04-12] MEDS: ACETAMINOPHEN 325 MG TAB PO PRN (17:21)
[2022-04-12] MEDS: SODIUM CHLORIDE 0.9% 1,000 ML IV SCH (17:46)
[2022-04-12 22:00] VITALS: BP 108/73
[2022-04-12] MEDS: ATORVASTATIN 20 MG TAB GT SCH (23:08)
[2022-04-13] MEDS: FREE WATER GT SCH ×4 (00:02→17:57)
[2022-04-13] MEDS: Pro-Stat SF 30ml Vanilla GT SCH ×3 (00:02→20:17)
[2022-04-13] MEDS: SODIUM CHLORIDE 0.9% 1,000 ML IV SCH ×2 (03:50→13:20)
[2022-04-13 04:33] VITALS: BP 125/37
[2022-04-13] MEDS: ALBUTEROL SULF 2.5 MG/0.5ML(0.5%) NEB SOLN NEB SCH ×4 (06:13→23:55)
[2022-04-13] MEDS: IPRATROPIUM BROM 0.5 MG/2.5ML INH SOL NEB SCH ×4 (06:14→23:55)
[2022-04-13] MEDS: MIDODRINE HCL 10 MG TAB GT SCH ×3 (06:15→17:57)
[2022-04-13] MEDS: MEROPENEM 1GM IVPB 100 ML IV SCH ×3 (06:16→21:21)
[2022-04-13 08:19] VITALS: BP 158/111
[2022-04-13] MEDS: ALPRAZolam 0.5 MG TAB GT SCH ×2 (08:20→20:16)
[2022-04-13] MEDS: PANTOPRAZOLE 40 MG/10 ML VIAL INJ IV SCH ×2 (08:20→20:16)
[2022-04-13] MEDS: DAKINS HALF STR 0.25% (NaHypochlorite) 473 ML TOPICAL SOL TOP SCH (08:20)
[2022-04-13] MEDS: CHOLESTYRAMINE 4 GM POWDER GT SCH (08:20)
[2022-04-13] MEDS: SODIUM CHLOR 0.9% PF (SALINE LOCK) 10ML VIAL/SYR IV SCH ×2 (08:20→21:21)
[2022-04-13] MEDS: MAGNESIUM OXIDE 400 MG TAB GT SCH ×2 (08:20→20:17)
[2022-04-13 08:46] VITALS: BP 107/66
[2022-04-13] MEDS: HYDROcodone-ACET 10/325MG TAB GT PRN ×2 (09:45→20:16)
[2022-04-13 12:15] VITALS: BP 103/67
[2022-04-13] MEDS: LORazepam 2MG/ML-1ML VIAL IV PRN (15:20)
[2022-04-13 16:45] VITALS: BP 101/63
[2022-04-13] MEDS: ATORVASTATIN 20 MG TAB GT SCH (20:17)
[2022-04-13 22:00] VITALS: BP 105/67
[2022-04-14] MEDS: FREE WATER GT SCH ×4 (00:01→17:39)
[2022-04-14] MEDS: SODIUM CHLORIDE 0.9% 1,000 ML IV SCH ×3 (00:02→22:18)
[2022-04-14] MEDS: LORazepam 2MG/ML-1ML VIAL IV PRN ×2 (00:08→22:30)
[2022-04-14 05:00] VITALS: BP 93/60
[2022-04-14] MEDS: MIDODRINE HCL 10 MG TAB GT SCH ×3 (05:40→18:00)
[2022-04-14] MEDS: ALBUTEROL SULF 2.5 MG/0.5ML(0.5%) NEB SOLN NEB SCH ×3 (06:13→18:28)
[2022-04-14] MEDS: IPRATROPIUM BROM 0.5 MG/2.5ML INH SOL NEB SCH ×3 (06:13→18:28)
[2022-04-14 09:00] VITALS: BP 135/95
[2022-04-14] MEDS: Pro-Stat SF 30ml Vanilla GT SCH ×2 (10:00→22:19)
[2022-04-14] MEDS: MAGNESIUM OXIDE 400 MG TAB GT SCH ×2 (10:05→22:18)
[2022-04-14] MEDS: DAKINS HALF STR 0.25% (NaHypochlorite) 473 ML TOPICAL SOL TOP SCH (10:08)
[2022-04-14] MEDS: PANTOPRAZOLE 40 MG/10 ML VIAL INJ IV SCH ×2 (10:08→22:18)
[2022-04-14] MEDS: SODIUM CHLOR 0.9% PF (SALINE LOCK) 10ML VIAL/SYR IV SCH ×2 (10:08→22:19)
[2022-04-14] MEDS: HYDROcodone-ACET 10/325MG TAB GT PRN ×4 (10:08→22:30)
[2022-04-14] MEDS: ALPRAZolam 0.5 MG TAB GT SCH ×2 (10:09→19:51)
[2022-04-14] MEDS: CHOLESTYRAMINE 4 GM POWDER GT SCH (12:08)
[2022-04-14 12:45] VITALS: BP 88/57
[2022-04-14] MEDS: fentaNYL 50MCG/HR 50 MCG/HR PAT TD SCH (14:14)
[2022-04-14 16:44] VITALS: BP 108/71
[2022-04-14 21:30] VITALS: BP 113/75
[2022-04-14] MEDS: ATORVASTATIN 20 MG TAB GT SCH (22:18)
[2022-04-15] MEDS: IPRATROPIUM BROM 0.5 MG/2.5ML INH SOL NEB SCH ×4 (00:24→21:50)
[2022-04-15] MEDS: ALBUTEROL SULF 2.5 MG/0.5ML(0.5%) NEB SOLN NEB SCH ×4 (00:24→21:50)
[2022-04-15] MEDS: FREE WATER GT SCH ×4 (00:29→17:07)
[2022-04-15] MEDS: SODIUM CHLORIDE 0.9% 1,000 ML IV SCH ×2 (05:24→17:07)
[2022-04-15 05:41] VITALS: BP 101/66
[2022-04-15] MEDS: MIDODRINE HCL 10 MG TAB GT SCH ×3 (05:41→17:49)
[2022-04-15 06:05] LABS: Basophils # (auto) 0 10 ^3/uL (0-0.2); Eosinophils # (auto) 0.2 10 ^3/uL (0-0.8); Eosinophils % (auto) 2.1 % (0.0-7.0); Lymphocytes # (auto) 1.1 10 ^3/uL (0.4-5.4); Mean Corpuscular Hgb Conc. 32.9 g/dL (32.0-36.0); Monocytes # (auto) 0.9 10 ^3/uL (0-1.3)
[2022-04-15 06:08] LABS: Basophils % (auto) 0.4 % (0.0-2.0); Hematocrit 23.5 % (41.0-53.0); Hemoglobin 7.7 g/dL (13.5-17.5); Lymphocytes % (auto) 15.8 % (10.0-50.0); Mean Corpuscular Hemoglobin 29.4 pg (28.0-32.0); Mean Corpuscular Volume 89.4 fL (80.0-100.0); Monocytes % (auto) 12.1 % (0.0-12.0); Neutrophils # (auto) 4.9 10 ^3/uL (1.6-8.6); Neutrophils % (auto) 69.6 % (37.0-80.0); Nucleated Red Blood Cells % 0.1 %; Red Blood Cells 2.63 10^6/uL (4.5-5.90); Red Cell Distribution Width 17.7 % (11.8-14.3)
[2022-04-15 06:29] LABS: Chloride 112 mmol/L (98-107); Potassium 3.7 mmol/L (3.5-5.1); Sodium 142 mmol/L (136-145)
[2022-04-15 06:35] LABS: Anion Gap 3 (5-15); BUN/Creatinine Ratio 126.7; Blood Urea Nitrogen 19 mg/dL (7-18); Calcium 7.2 mg/dL (8.5-10.1); Carbon Dioxide 27 mmol/L (21-32); GFR African American 888 mL/min; GFR Non-African American 734 mL/min; Glucose 62 mg/dL (74-106); Magnesium 1.4 mg/dL (1.6-2.6)
[2022-04-15] MEDS: HYDROcodone-ACET 10/325MG TAB GT PRN ×2 (06:40→21:41)
[2022-04-15 09:00] VITALS: BP 105/68
[2022-04-15] MEDS: MAGNESIUM OXIDE 400 MG TAB GT SCH ×2 (09:44→21:38)
[2022-04-15] MEDS: DAKINS HALF STR 0.25% (NaHypochlorite) 473 ML TOPICAL SOL TOP SCH (09:44)
[2022-04-15] MEDS: ALPRAZolam 0.5 MG TAB GT SCH ×2 (09:44→21:38)
[2022-04-15] MEDS: SODIUM CHLOR 0.9% PF (SALINE LOCK) 10ML VIAL/SYR IV SCH ×2 (09:44→21:39)
[2022-04-15] MEDS: PANTOPRAZOLE 40 MG/10 ML VIAL INJ IV SCH ×2 (09:44→21:38)
[2022-04-15] MEDS: Pro-Stat SF 30ml Vanilla GT SCH (09:45)
[2022-04-15] MEDS: CHOLESTYRAMINE 4 GM POWDER GT SCH (12:48)
[2022-04-15 13:21] VITALS: BP 103/70
[2022-04-15 17:00] VITALS: BP 107/69
[2022-04-15] MEDS: ATORVASTATIN 20 MG TAB GT SCH (21:38)
[2022-04-15 22:00] VITALS: BP 90/61
[2022-04-15 22:54] VITALS: BP 107/69
[2022-04-16] MEDS: ALBUTEROL SULF 2.5 MG/0.5ML(0.5%) NEB SOLN NEB SCH ×4 (00:50→18:00)
[2022-04-16] MEDS: IPRATROPIUM BROM 0.5 MG/2.5ML INH SOL NEB SCH ×4 (00:50→18:00)
[2022-04-16] MEDS: SODIUM CHLORIDE 0.9% 1,000 ML IV SCH ×2 (01:20→12:24)
[2022-04-16] MEDS: FREE WATER GT SCH ×3 (01:21→12:21)
[2022-04-16] MEDS: Pro-Stat SF 30ml Vanilla GT SCH ×2 (01:21→10:21)
[2022-04-16] MEDS: LORazepam 2MG/ML-1ML VIAL IV PRN (01:21)
[2022-04-16] MEDS: HYDROcodone-ACET 10/325MG TAB GT PRN (03:08)
[2022-04-16 05:00] VITALS: BP 93/61
[2022-04-16] MEDS: MIDODRINE HCL 10 MG TAB GT SCH ×2 (06:12→12:21)
[2022-04-16 09:00] VITALS: BP 97/63
[2022-04-16] MEDS: MAGNESIUM OXIDE 400 MG TAB GT SCH (10:17)
[2022-04-16] MEDS: ALPRAZolam 0.5 MG TAB GT SCH (10:17)
[2022-04-16] MEDS: PANTOPRAZOLE 40 MG/10 ML VIAL INJ IV SCH (10:18)
[2022-04-16] MEDS: DAKINS HALF STR 0.25% (NaHypochlorite) 473 ML TOPICAL SOL TOP SCH (10:20)
[2022-04-16] MEDS: SODIUM CHLOR 0.9% PF (SALINE LOCK) 10ML VIAL/SYR IV SCH (10:20)
[2022-04-16] MEDS: CHOLESTYRAMINE 4 GM POWDER GT SCH (12:20)
[2022-04-16 13:00] VITALS: BP 113/81
[2022-04-16 17:00] VITALS: BP 96/47
[2022-04-16 17:09] VITALS: BP 96/47
== END 2022-04-16 18:20 | DRG 710 ==
LOC: ER 13:33 → EDBD 13:33 → OVERFLOW 19:03 → WEST WING 02-25 08:14 → DOU IN ICU 02-26 23:21 → ICU CENTRL 03-01 04:41 → ICU WEST 03-03 23:28 → DOU IN ICU 03-17 17:40 → TELE-CENTR 03-28 21:15 → TELE-EAST 04-03 16:14
PROVIDERS: ADMIT Internal Medicine; ATTEND Internal Medicine
PROC: 02HV33Z Insertion of Infusion Device into Superior Vena Cava, Percutaneous Approach (ICD-10-PCS; 2022-03-01)
PROC: B548ZZA Ultrasonography of Superior Vena Cava, Guidance (ICD-10-PCS; 2022-03-01)
PROC: 0BH17EZ Insertion of Endotracheal Airway into Trachea, Via Natural or Artificial Opening (ICD-10-PCS; 2022-03-02)
PROC: 5A09357 Assistance with Respiratory Ventilation, Less than 24 Consecutive Hours, Continuous Positive Airway Pressure (ICD-10-PCS; 2022-03-02)
PROC: 5A1945Z Respiratory Ventilation, 24-96 Consecutive Hours (ICD-10-PCS; 2022-03-02)
PROC: 30233N1 Transfusion of Nonautologous Red Blood Cells into Peripheral Vein, Percutaneous Approach (ICD-10-PCS; 2022-03-03)
PROC: 0B978ZZ Drainage of Left Main Bronchus, Via Natural or Artificial Opening Endoscopic (ICD-10-PCS; 2022-03-04)
PROC: 0BCB8ZZ Extirpation of Matter from Left Lower Lobe Bronchus, Via Natural or Artificial Opening Endoscopic (ICD-10-PCS; 2022-03-04)
PROC: 5A1935Z Respiratory Ventilation, Less than 24 Consecutive Hours (ICD-10-PCS; 2022-03-06)
PROC: 5A09357 Assistance with Respiratory Ventilation, Less than 24 Consecutive Hours, Continuous Positive Airway Pressure (ICD-10-PCS; 2022-03-06)
PROC: 5A09357 Assistance with Respiratory Ventilation, Less than 24 Consecutive Hours, Continuous Positive Airway Pressure (ICD-10-PCS; 2022-03-07)
PROC: 5A09357 Assistance with Respiratory Ventilation, Less than 24 Consecutive Hours, Continuous Positive Airway Pressure (ICD-10-PCS; 2022-03-08)
PROC: 5A1945Z Respiratory Ventilation, 24-96 Consecutive Hours (ICD-10-PCS; 2022-03-08)
PROC: 0D20XUZ Change Feeding Device in Upper Intestinal Tract, External Approach (ICD-10-PCS; 2022-03-09)
PROC: 0B110F4 Bypass Trachea to Cutaneous with Tracheostomy Device, Open Approach (ICD-10-PCS; 2022-03-11)
PROC: 5A1935Z Respiratory Ventilation, Less than 24 Consecutive Hours (ICD-10-PCS; principal; 2022-03-13)
DX: A41.9 Sepsis, unspecified organism (principal); N17.0 Acute kidney failure with tubular necrosis; J96.02 Acute respiratory failure with hypercapnia; R65.21 Severe sepsis with septic shock; J69.0 Pneumonitis due to inhalation of food and vomit; G93.41 Metabolic encephalopathy; G93.1 Anoxic brain damage, not elsewhere classified; J15.0 Pneumonia due to Klebsiella pneumoniae; J96.21 Acute and chronic respiratory failure with hypoxia; E43 Unspecified severe protein-calorie malnutrition; J15.1 Pneumonia due to Pseudomonas; Z20.822 Contact with and (suspected) exposure to COVID-19; T83.511A Infection and inflammatory reaction due to indwelling urethral catheter, initial encounter; L89.154 Pressure ulcer of sacral region, stage 4; E88.09 Other disorders of plasma-protein metabolism, not elsewhere classified; F41.9 Anxiety disorder, unspecified; Y84.6 Urinary catheterization as the cause of abnormal reaction of the patient, or of later complication, without mention of misadventure at the time of the procedure; N39.0 Urinary tract infection, site not specified; I12.9 Hypertensive chronic kidney disease with stage 1 through stage 4 chronic kidney disease, or unspecified chronic kidney disease; N18.9 Chronic kidney disease, unspecified; D63.8 Anemia in other chronic diseases classified elsewhere; E87.1 Hypo-osmolality and hyponatremia; E87.4 Mixed disorder of acid-base balance; I69.354 Hemiplegia and hemiparesis following cerebral infarction affecting left non-dominant side; J98.11 Atelectasis; Z68.34 Body mass index [BMI] 34.0-34.9, adult; E83.42 Hypomagnesemia; E87.0 Hyperosmolality and hypernatremia; F17.200 Nicotine dependence, unspecified, uncomplicated; I71.40 Abdominal aortic aneurysm, without rupture, unspecified; K20.90 Esophagitis, unspecified without bleeding; K29.70 Gastritis, unspecified, without bleeding; K29.80 Duodenitis without bleeding; K44.9 Diaphragmatic hernia without obstruction or gangrene; R13.10 Dysphagia, unspecified; G82.20 Paraplegia, unspecified; T17.890A Other foreign object in other parts of respiratory tract causing asphyxiation, initial encounter; X58.XXXA Exposure to other specified factors, initial encounter; Z16.24 Resistance to multiple antibiotics; Z68.1 Body mass index [BMI] 19.9 or less, adult; Z78.9 Other specified health status; Z79.82 Long term (current) use of aspirin; Z79.899 Other long term (current) drug therapy; Z89.511 Acquired absence of right leg below knee; Z93.0 Tracheostomy status; Z95.0 Presence of cardiac pacemaker; Z99.11 Dependence on respirator [ventilator] status; Z89.611 Acquired absence of right leg above knee; Z83.3 Family history of diabetes mellitus; Z86.79 Personal history of other diseases of the circulatory system; Z80.1 Family history of malignant neoplasm of trachea, bronchus and lung; Z82.49 Family history of ischemic heart disease and other diseases of the circulatory system; Y93.89 Activity, other specified; Y92.89 Other specified places as the place of occurrence of the external cause; Y99.8 Other external cause status; H57.02 Anisocoria
CPT/HCPCS: 31645; 31646; 31720; 36415; 36569; 36600; 43246; 70450; 71045; 71275; 74176; 80048; 80053; 80061; 80069; 80170; 80202; 81001; 82270; 82306; 82565; 82570; 82805; 82962; 83605; 83735; 83880; 83970; 84100; 84156; 84300; 84478; 84484; 85007; 85025; 85027; 85610; 85730; 86850; 86900; 86901; 86920; 87040; 87070; 87077; 87081; 87086; 87088; 87186; 87205; 87426; 92610; 93005; 94002; 94003; 94640; 94644; 94660; 94668; 95819; 96365; 96368; 96375; 97110; 97163; 97530; A4605; C9113; G0378; J0171; J0330; J0690; J0696; J0714; J2001; J2185; J2248; J2250; J2405; J2543; J2704; J3480; J7060